=== PATIENT | male | born 1980 | race Two or more races ===

== ENCOUNTER 2020-07-12 10:20 | Outpatient (REF) | payer MEDICAID, SELFPAY ==
--- NOTE | 2020-07-12 | US_ITS ---
EXAMINATION: RIGHT and LEFT LOWER EXTREMITY VENOUS ULTRASOUND (Reflux Exam) CLINICAL INDICATION: leg pain and varicose veins. COMPARISON: None. TECHNIQUE: Color flow triplex imaging and compression Doppler was performed to evaluate both the deep and the superficial systems bilaterally. To evaluate the superficial system, the examination was performed in the upright position. Color-flow Doppler ultrasound and compression ultrasound were utilized. In addition, maneuvers were utilized to demonstrate reflux. FINDINGS: 1. DEEP VENOUS ULTRASOUND OF THE RIGHT LOWER EXTREMITY: Respiratory variation, normal compression and augmented flow are noted in the right common femoral vein as well as the right popliteal vein and there is no evidence of deep venous thrombosis at these locations. There is no evidence of reflux in the deep system in either the common femoral vein or the superficial femoral vein. There is deep venous reflux in the popliteal vein measuring 3.1 seconds. There is no evidence of a Terrazas's cyst. 2. SUPERFICIAL ULTRASOUND WITH DOPPLER OF RIGHT LOWER EXTREMITY: The right great saphenous vein at the saphenofemoral junction measures 11 mm, at the mid thigh 9 mm, [id number]-igd-[id number] 8 mm, heqhu-bod-cczg 7 mm, at mid calf 4 mm and at the ankle measures 4 mm. There is diffuse right greater saphenous vein reflux measuring maximum 1.5 seconds at the saphenofemoral junction and at the knee. The right small saphenous vein measures 3 mm and shows no reflux. There is a digital media producer in the mid calf that measures 4 mm and does not demonstrate reflux. There are varicosities at the knee measuring 7 and 9 mm which demonstrate 1.9 and 1.5 second reflux. There are varicosities in the proximal calf that measures 7 and 5 mm in diameter and demonstrate 1.5 and 1.1 seconds reflux. 3. DEEP VENOUS ULTRASOUND OF THE LEFT LOWER EXTREMITY: Respiratory variation, normal compression and augmented flow are noted in the left common femoral vein as well as the left popliteal vein and there is no evidence of deep venous thrombosis at these locations. There is no evidence of reflux in the deep system in either the common femoral vein or the popliteal vein. There is deep venous reflux in the superficial femoral vein measuring 1.1 seconds. There is a small fluid collection anterior to the left popliteal vein measuring 2.9 x 0.6 x 1.8 cm.. There is no evidence of a Terrazas's cyst. 4. SUPERFICIAL ULTRASOUND WITH DOPPLER OF LEFT LOWER EXTREMITY: Left great saphenous vein at the saphenofemoral junction measures 9 mm, at the mid thigh 8 mm, wkawr-vil-mykw 6 mm, puzza-oeq-ntft 11 mm, at mid calf 3 mm and at the ankle measures 4 mm. There is left greater saphenous vein reflux from the mid thigh to the mid calf, measuring maximum 3 second at the knee. There is an accessory medial left greater saphenous vein that measures 5 mm and does not demonstrate reflux. The left small saphenous vein measures 3-4 mm and shows no reflux. There is a digital media producer in the mid calf that measures 5 mm and does not demonstrate reflux. There are costal disease in the mid thigh that measure 6 and 5 mm and demonstrates 2.2 and 1 seconds reflux. There are varicosities in the proximal and mid calf that measures 6 and 3 mm and demonstrates 2.5 and 1.2 seconds reflux. IMPRESSION: 1. Right: No evidence of DVT. Right popliteal vein deep venous reflux. Right greater saphenous vein reflux. 2. Left: No evidence of DVT. Left superficial femoral vein deep venous reflux. Left greater saphenous vein reflux.
== END 2020-07-12 10:21 | disposition home or self-care (01) ==
LOC: HO.US 10:20
PROVIDERS: PCP Nurse Practitioner Primary Care; Visit Provider Surgery Vascular Surgery
DX: I83.12 Varicose veins of left lower extremity with inflammation (principal)
CPT/HCPCS: 93970

== ENCOUNTER → 2020-07-26 11:11 | Outpatient (BNVA) | payer MEDICARE, MEDICAID, SELFPAY | PROVIDERS: Visit Provider Surgery Vascular Surgery | DX: I83.12 Varicose veins of left lower extremity with inflammation (principal) | CPT/HCPCS: 99213 ==

== ENCOUNTER → 2020-08-24 09:16 | Outpatient (BNVA) | payer MEDICARE, MEDICAID, SELFPAY | PROVIDERS: PCP Nurse Practitioner Primary Care; Referring Provider Nurse Practitioner Primary Care; Visit Provider Surgery Vascular Surgery | DX: I83.12 Varicose veins of left lower extremity with inflammation (principal) | CPT/HCPCS: 36482 ==

== ENCOUNTER 2020-08-27 11:54 | Outpatient (REF) | payer MEDICARE, MEDICAID, SELFPAY ==
--- NOTE | 2020-08-27 | US_ITS ---
EXAMINATION: US VENOUS ULTRASOUND WITH DOPPLER LOWER EXTREMITY, LEFT CLINICAL INFORMATION: Status post VenaSeal left leg. COMPARISON: None TECHNIQUE: Ultrasound of the deep veins is performed from the hip to the calf with compression sonography and color and pulse Doppler assessment. Spectral analysis with color-flow imaging is performed. FINDINGS: There is normal venous compression and respiratory variation and augmented flow. The visualized common femoral vein, superficial femoral vein, profunda femoral vein, popliteal vein, and the trifurcation region shows no evidence of deep venous thrombosis. There is no significant popliteal fossa cyst. There is a VenaSeal seen in the greater saphenous vein approximately 2.2 cm away from the SFJ. If the patient's symptoms persist, followup ultrasound in 5 days - 7 days might be of value to exclude proximal propagation from a non-visualized calf vein. US/US venous duplex LE IMPRESSION: No DVT demonstrated in the left lower extremity. Evidence of VenaSeal in the greater saphenous vein approximately 2.2 cm away from SFJ.
== END 2020-08-27 11:55 | disposition home or self-care (01) ==
LOC: HO.US 11:54
PROVIDERS: PCP Nurse Practitioner Primary Care; Visit Provider Surgery Vascular Surgery
DX: M79.662 Pain in left lower leg (principal)
CPT/HCPCS: 93971

== ENCOUNTER → 2020-09-06 10:28 | Outpatient (BNVA) | payer MEDICARE, MEDICAID, SELFPAY | PROVIDERS: PCP Nurse Practitioner Primary Care; Visit Provider Surgery Vascular Surgery | DX: I83.11 Varicose veins of right lower extremity with inflammation (principal) | CPT/HCPCS: 99212 ==

== ENCOUNTER → 2020-09-21 12:30 | Outpatient (BNVA) | payer MEDICARE, MEDICAID, SELFPAY | PROVIDERS: PCP Nurse Practitioner Primary Care; Referring Provider Nurse Practitioner Primary Care; Visit Provider Surgery Vascular Surgery | DX: I83.11 Varicose veins of right lower extremity with inflammation (principal) | CPT/HCPCS: 36482 ==

== ENCOUNTER 2020-09-24 15:10 | Outpatient (REF) | payer MEDICARE, MEDICAID, SELFPAY ==
--- NOTE | 2020-09-24 | US_ITS ---
EXAMINATION: US VENOUS ULTRASOUND WITH DOPPLER LOWER EXTREMITY, RIGHT CLINICAL INFORMATION: Post veno seal. Evaluate for DVT. COMPARISON: Previous exam most recent August 2020 TECHNIQUE: Ultrasound of the deep veins is performed from the hip to the calf with compression sonography and color and pulse Doppler assessment. Spectral analysis with color-flow imaging is performed. FINDINGS: There is normal venous compression and respiratory variation and augmented flow. The visualized common femoral vein, superficial femoral vein, profunda femoral vein, popliteal vein, and the trifurcation region shows no evidence of deep venous thrombosis. There is echogenic material seen in the right greater saphenous vein post venous seal procedure. This is 4.9 cm from the saphenofemoral junction. There is no significant popliteal fossa cyst. US/US venous duplex LE RT IMPRESSION: No DVT demonstrated in the right lower extremity.
== END 2020-09-24 15:11 | disposition home or self-care (01) ==
LOC: HO.US 15:10
PROVIDERS: Visit Provider Surgery Vascular Surgery
DX: M79.604 Pain in right leg (principal)
CPT/HCPCS: 93971

== ENCOUNTER → 2020-10-02 11:11 | Outpatient (BNVA) | payer MEDICARE, SELFPAY | PROVIDERS: PCP Nurse Practitioner Primary Care; Visit Provider Surgery Vascular Surgery | DX: I87.2 Venous insufficiency (chronic) (peripheral) (principal); Z98.890 Other specified postprocedural states | CPT/HCPCS: Q3014 ==

== ENCOUNTER → 2021-09-11 09:11 | Outpatient (BNVA) | payer OTHER, SELFPAY | PROVIDERS: PCP Nurse Practitioner Primary Care; Referring Provider Nurse Practitioner Primary Care; Visit Provider Surgery | DX: D17.9 Benign lipomatous neoplasm, unspecified (principal) | CPT/HCPCS: 99202 ==

== ENCOUNTER 2021-10-03 13:33 | Outpatient (REF) | payer OTHER, SELFPAY ==
[2021-10-03 13:40] VITALS: BMI 31.1
[2021-10-03 13:41] VITALS: BP 111/69; PULSE 71; RESP 16; TEMP 36.3; O2SAT 100
[2021-10-03 14:00] VITALS: BP 110/72; PULSE 70; RESP 16; O2SAT 100
--- NOTE | 2021-10-03 14:00 | W.PM.OPN ---
Operative Note Operative Note Date of Service: 10/03/21 Narrative: Preop diagnosis: Lipomas x2, right arm Postop diagnosis : Lipomas x2 right arm Procedure: Excision of lipomas x2 right arm under local anesthesia Surgeon: Duarte Whitfield MD The patient is a 40 year old male, with to lipomatous masses on the right arm. He had a 2 cm lipoma on the right forearm and a 3 cm lipoma in the right upper arm. He wanted both of these removed. He understood technique of excision under local anesthesia. He was aware of the risks, benefits, and alternatives. The patient was brought to the minor procedure room and placed supine with right arm on the side. A surgical time-out was done. The areas of the lipomas on the right forearm as well as the right upper arm were prepped and draped in the usual sterile fashion. I infiltrated both areas with lidocaine 1%. I made an incision on the skin overlying the lipoma on the right upper arm using blade 15. And this was carried down through the full-thickness skin and part of subcutaneous layer until was able to visualize a lipoma. I sharply dissected the lipoma off of the rest of the subcutaneous layer Metzenbaum scissors until I was able to deliver this. This was about 3 cm by 2 cm in size. This was sent as a specimen. I closed the incision full-thickness nylon 3-0 interrupted sutures. I then proceeded to excise the lipoma on the forearm. I made an incision using blade 15. I carried this down through the full-thickness of the skin and subcutaneous fat until a lipoma was visualized. I sharply dissected the lipoma off of the rest of the subcutaneous layer using Metzenbaum scissors until was able to deliver this. This was sent as specimen. This lipoma measured about 2 cm x 1 cm in size. I closed the incision full-thickness nylon 3-0 interrupted sutures. Dressings were applied on both incisions . The patient tolerated procedure well. There were no complications noted. Estimated blood loss was about 3 cc Patient was given wound care instructions and will be seen in the office for removal of sutures.
== END 2021-10-03 13:34 | disposition home or self-care (01) ==
LOC: HO.MS 13:33
PROVIDERS: Visit Provider Surgery
PROC: (CPT 24071; principal; 2021-10-03 14:20)
DX: D17.21 Benign lipomatous neoplasm of skin and subcutaneous tissue of right arm (principal)
CPT/HCPCS: 24071; 25075; 88304

== ENCOUNTER → 2021-10-16 10:01 | Outpatient (BNVA) | payer OTHER, SELFPAY | PROVIDERS: PCP Nurse Practitioner Primary Care; Referring Provider Nurse Practitioner Primary Care; Visit Provider Surgery | DX: Z09 Encounter for follow-up examination after completed treatment for conditions other than malignant neoplasm (principal); D17.21 Benign lipomatous neoplasm of skin and subcutaneous tissue of right arm | CPT/HCPCS: 99212 ==

== ENCOUNTER 2025-07-18 11:16 | Outpatient (REF) | payer OTHER, SELFPAY ==
--- OUTSIDE RECORDS SUMMARY | 2025-07-18 10:30 | XMS_ITS | Encounter Summary ---
Author Organization [employer] Address [address] [facility] [address] [place] [address] Care Team Providers Care Hair Mixer Name Role Phone Ludivina Gonzalez Primary Care Provider [phone] Reason for Visit * Reason Comments hospital follow up Encounter Details Date Type Department Care Team (Latest Contact Info) Description 07/18/2025 10:30 AM EDT Office Visit [facility] MEDICINE [address], [place] [phone] Ludivina Gonzalez ANP [address], [place] [phone] Hospital discharge follow-up (Primary Dx); Paranoid schizophrenia (CMS/HCC) (HCC); Psychogenic polydipsia; Chronic hyponatremia Social History Tobacco Use Types Packs/Day Years Used Date Smoking Tobacco: Never Smokeless Tobacco: Never Tobacco Cessation:Counseling Given: Not Answered Alcohol Use Standard Drinks/Week Comments Not Currently 0 (1 standard drink = 0.6 oz pur e alcohol) Depression Answer Date Recorded Patient Health Questionnaire-9 Score 4 07/18/2025 Patient Health Questionnaire-9 Score 4 07/18/2025 Last PHQ-9: Questionnaire Data Not on file 1 Housing Stability Answer Date Recorded What is your housing situation today? I have housing today, but I am worried about losing housing in the future 12/16/[address] you li ve. Do you have problems with any of the following? None of the above 12/16/2024 Food Insecurity Answer Date Recorded Within the past 12 months, y ou worried that your food would run out before you got money to buy more: Never True 2024 Within the past 12 months,th e food you bought just didn't last and you didn't have enough money to get more: Sometimes True 12/16/2024 Transportation Answer Date Recorded In the past 12 months, has l ack of transportation kept you from medical appts, meetings, work or from getting things needed for daily living? No 03/11/2024 Utilities Answer Date Recorded In the past 12 months, has t he electric, gas, oil or water company threatened to shut off services in your home? I am not sure 12/16/2024 Depression Answer Date Recorded Patient Health Questionnaire-2 Score 0 07/18/2025 Internet Access Answer Date Recorded Internet Access Q1 No 12/16/2024 Internet Access Q2 Not on file 12/16/2024 Sex and Gender Information Value Date Recorded Sex Assigned at Male 08/04/2022 10:37 AM EDT Legal Sex Male 10:37 AM EDT Gender Identity Male 08/04/2022 10:37 AM EDT Sexual Orientation Straight 08/04/2022 10 :37 AM EDT documented as of this encounter Last Filed Vital Signs Vital Sign Reading Time Taken Comments Blood Pressure 110/70 07/18/2025 10:17 AM EDT Pulse 92 07/18/2025 10:17 AM EDT Temperature 36.2 C (97.1 F) 07/18/2025 10:17 AM EDT Respiratory Rate 15 07/18/2025 10:17 AM EDT Oxygen Saturation 97% 07/18/2025 10:17 AM EDT Inhaled Oxygen Concentration - - Weight 104 kg (230 lb 2 oz) 07/18/2025 10:17 AM EDT Height 175.3 cm (5' 9 ) 07/18/2025 10:17 AM EDT Body Mass Index 33.98 07/18/2025 10:17 AM EDT documented in this encounter Functional Status * Over the past 2 weeks, how often have you been bothered by any of the following problems? Question Answer Date of Assessment Author Patient Health Questionnaire -2 Score 0 07/18/2025 10:44 AM EDT Kiley Younger MA * Little interest or pleasure in doing things Answer Date of Assessment Author Not at all 07/18/2025 10:44 AM EDT Kiley Younger MA * Feeling down, depressed, or hopeless Answer Date of Assessment Author Not at all 07/18/2025 10:44 AM EDKiley Gonzalez MA * Trouble falling or staying asleep, or sleeping too much Answer Date of Assessment Author Not at all 07/18/2025 10:44 AM Kiley Roman MA * Feeling tired or having little energy Answer Date of Assessment Author Several days 07/18/2025 10:44 AM Kiley Roman MA * Poor appetite or overeating Answer Date of Assessment Author Several days 07/18/2025 10:44 AM EDT Kiley Younger MA * Feeling bad about yourself - or that you are a failure or have let yourself or your family down Answer Date of Assessment Author Several days 07/18/2025 10:44 AM Kiley Roman MA * Trouble concentrating on things, such as reading the newspaper or watching television Answer Date of Assessment Author Not at all 07/18/2025 10:44 AM Kiley Roman MA * Moving or speaking so slowly that other people could have noticed? Or the opposite - being so fidgety or restless that you have been moving around a lot more than usual. Answer Date of Assessment Author Several days 07/18/2025 10:44 AM Kiley Roman MA * Thoughts that you would be better off or hurting yourself in some way Answer Date of Assessment Author Not at all 07/18/2025 10:44 AM Kiley Roman MA * Patient Health Questionnaire-9 Score Answer Date of Assessment Author 4 07/18/2025 10:44 AM Kiley Roman MA * How difficult have these problems made it for you to do your work, take care of things at home, or get along with other people? Answer Date of Assessment Author Not difficult at all 07/18/2025 10:44 AM Kiley Romero MA * Over the last 2 weeks, how often have you been bothered by any of the following problems? Question Answer Date of Assessment Author Feeling nervous, anxious, or on edge 1 07/18/2025 10:44 AM Kiley Roman MA Not being able to stop or co ntrol worrying 1 07/18/2025 10:44 AM EDT Kiley Younger MA Worrying too much about diff erent things 1 07/18/2025 10:44 AM EDT Kiley Younger MA Trouble relaxing 1 07/18/2025 10:44 AM EDT Kiley Younger MA Being so restless that it is hard to sit still 0 07/18/2025 10:44 AM EDT Kiley Younger MA Becoming easily annoyed or irritable 1 07/18/2025 10:44 AM EDT Kiley Younger MA Feeling afraid as if somethi ng awful might happen 2 07/18/2025 10:44 AM EDT Kiley Younger MA CATARINA-7 Total Score 7 07/18/2025 10:44 AM EDT Kiley Younger MA documented as of this encounter Progress Notes * DEISI Montaño - 07/18/2025 10:30 AM EDT Subjective Patient ID: Rocky Cummins is a 44 y.o. male who presents for HDF. HPI Recent hospitalization for schizophrenia, [facility] (03/09/25-06/30/25), now living at [facility] facility per pt (though FD reported [facility] provided transportation). He says he feels well. Taking medications as rx'd and reports last risperdal injection 1 week ago. Reports feelings better, but continue endorsing auditory prosecutorial hallucinations and of jew content. Reports drinking 10 bottles water daily and is taking sodium pills. clinician Rolo to room to meet w pt. Pharmacy Recommendations for provider: Lorazepam may have its side effects increased by valproic acid. Monitor for increased lorazepam effects, particularly SECURITY ORDERLY depression Please ensure patient has follow up with psychiatry Patient was continued on Risperdal Consta, to be injected every 14 days. Please confirm when patient received last dose and whether they have an appointment for administration scheduled Per discharge, Monitor sodium levels to assess need for therapy modification of risperidone Background Pharmacist Charleen Saenz PharmD was unable to contact patient to discuss upcoming hospital dischargevisit for schizophrenia, psychogenic polydipsia : Future Appointments Date Time Provider Department Center 07/18/2025 10:30 AM DEISI Montaño MEDICINE [facility] Hospital Course and Medication Reconciliation [facility] (03/09/25-06/30/25) Patient brought in after community crisis co-response triggered by mother due to patient experiencing worsening depression and hallucinations. Patient reported AH in the form of arguing with God and hearing voices telling them people are trying to kill them. Valproate added early in treatment course. Alternatives to risperidone discussed however patient declined. Overall patient became notably less paranoid and hallucinations resolved. Disposition at [facility] respite secured. Patient noted to have hyponatremia on 04/12. Believed to be due to valproate use however ultimate etiology seem to be psychogenic polydipsia. Patient encouraged to self regulate fluid intake and started on sodium tablets. Patient to have weekly sodium labs and outpatient management with PCP. If hyponatremia worsens, converting from risperidone to clozapine may be warranted. Medication changes that occurred during hospitalization include: Added Benztropine 1 mg twice a day Divalproex [address] tab - 1 tab twice a day and 3 tabs at bedtime Lorazepam 2 mg at bedtime Sodium chloride 1000 mg three times a day Changed: none Discontinued: risperidone tablets Preferred Pharmacy: [facility] - [address] [id number] [facility] [address] [id number] Medbox: No Review of Systems Constitutional: Negative for chills and fever. HENT: Negative for sore throat. Respiratory: Negative for cough and shortness of breath. Cardiovascular: Negative for chest pain. Gastrointestinal: Negative for constipation and diarrhea. Endocrine: Negative for polydipsia, polyphagia and polyuria. Genitourinary: Negative for dysuria. Neurological: Negative for weakness. Psychiatric/Behavioral: Negative for sleep disturbance. Objective BP 110/70 (BP Location: Right arm, Patient Position: Sitting, BP Cuff Size: Large adult) Pulse 92 Temp 97.1 ??F (36.2 ??C) (Oral) Resp 15 Ht 5' 9 (1.753 m) Wt 230 lb 2 oz (104 kg) SpO2 97% BMI 33.98 kg/m?? Physical Exam Vitals reviewed. Constitutional: General: He is not in acute distress. Appearance: Normal appearance. He is not ill-appearing. HENT: Head: Normocephalic and atraumatic. Eyes: General: No scleral icterus. Extraocular Movements: Extraocular movements intact. Pupils: Pupils are equal, round, and reactive to light. Cardiovascular: Rate and Rhythm: Normal rate. Pulmonary: Effort: Pulmonary effort is normal. No accessory muscle usage or respiratory distress. Neurological: Mental Status: He is alert and oriented to person, place, and time. Psychiatric: Mood and Affect: Mood normal. Behavior: Behavior normal. Assessment/Plan Diagnoses and all orders for this visit: Hospital discharge follow-up Paranoid schizophrenia (CMS/HCC) ([facility]) Pt engaged w/ psych and therapy services, living in therapeutic housing via either [facility] or [facility], not entirely clear. Pt reports to clinician he could live there for 1yr, which is great but possibly not a manager long term care solution. Living w/ mom in past and decompensated, prior to that was with sister in [place] I believe, and then halfway in [place]. Cont plan per psych. - Valproic Acid Total; Future Psychogenic polydipsia - Comprehensive Metabolic Panel; Future Chronic hyponatremia - Comprehensive Metabolic Panel; Future documented in this encounter Plan of Treatment Upcoming Encounters Date Type Department Care Team (Late st Contact Info) Description 09/22/2025 11:00 AM EST Office Visit [facility] [address], [place] [phone] Ludivina Gonzalez ANP [address] [place] [address] Scheduled Orders Name Type Priority Associated Diagnoses Orde r Schedule Comprehensive Metabolic Panel Lab Routine Psychogenic polydipsia Chronic hyponatremia Expected: 07/18/2025 (Approximate), Expires: 07/18/2026 Valproic Acid Total Lab Routine Paranoid schizophrenia (CMS/HCC) (HCC) Expected: 07/18/2025 (Approximate), Expires: 07/18/2026 documented as of this encounter Visit Diagnoses Diagnosis Hospital discharge follow-up- Primary Other follow-up examination Paranoid schizophrenia (CMS/HCC) (HCC) Paranoid schizophrenia, unspecified condition Psychogenic polydipsia Psychic factors associated with diseases classified elsewhere Chronic hyponatremia Hyposmolality and/or hyponatremia documented in this encounter Additional Health Concerns Assessment Noted Time PHQ-9 Depression Total Score: 4 07/18/20 10:44 AM EDT documented as of this encounter Care Teams Hair Mixer Relationship Specialty Start Date End Date Ludivina Gonzalez ANP [address] [place] [id number] PCP - General Family Medicine 06/05/20 [facility] 11/17[facility]24 documented as of this encounter
--- OUTSIDE RECORDS SUMMARY | 2025-07-18 13:42 | XMS_ITS | Encounter Summary ---
Author Organization [employer] Address [address] [facility] [address] [place] [address] Care Team Providers Care Receiving Room Clerk Name Role Phone Ludivina Gonzalez Primary Care Provider [phone] Reason for Visit * Reason Onset Date Comments chart prep 07/17/2025 Encounter Details Date Type Department Care Team ([facility] Contact Info) Description 07/17/2025 Telephone [facility] [address] [place], [place] [phone] Ludivina Gonzalez ANP [address] [place], [place] [phone] chart prep Social History Tobacco Use Types Packs/Day Years Used Date Smoking Tobacco: Never Smokeless Tobacco: Never Alcohol Use Standard Drinks/Week Comments Not Currently [...] AM EDT documented as of this encounter Miscellaneous Notes * Telephone Encounter - Kiley Younger MA - 07/17/2025 8:49 AM EDT Chart Prep Labs: done Images: not applicable Referrals: not applicable Vaccines due: PCV20, Hep A, and HPV Screenings: not applicable Overdue care gaps: Oral health screening and Disability screen documented in this encounter Plan of Treatment Upcoming Encounters Date Type Department Care Team (Late st Contact Info) Description 09/22/2025 11:00 AM EST Office Visit [facility] [address] [place] [phone] Ludivina Gonzalez ANP [address] [place] [address] documented as of this encounter Visit Diagnoses Not on filedocumented in this encounter Additional Health Concerns Assessment Noted Time PHQ-9 Depression Total Score: 7 10/20/19 25 2:22 PM EST documented as of this encounter Care Teams Receiving Room Clerk Relationship Specialty Start Date End Date Ludivina Gonzalez ANP [address] [place] [id number] PCP - General Family Medicine 06/05/20 [facility] 11/17/24 documented as of this encounter
--- OUTSIDE RECORDS SUMMARY | 2025-07-18 13:42 | XMS_ITS | Encounter Summary ---
Author Organization [employer] Address [address] [place] [address] Care Team Providers Care Electric Meter Installer Helper Name Role Phone Ludivina Gonzalez Primary Care Provider [phone] Reason for Visit * Reason Onset Date Comments Call Back Request 10/12/2023 Encounter Details Date Type Department Care Team ([facility] Contact Info) Description 10/12/2023 Telephone [facility] [address] [place], [place] [phone] Ludivina Gonzalez ANP [address] [place], [place] [phone] Call Back Request Social History Tobacco Use Types Packs/Day Years Used Date Smoking Tobacco: Never Smokeless Tobacco: Never Alcohol Use Standard Drinks/Week Comments Not Currently 0 (1 standard drink = 0.6 oz pur e alcohol) Housing Stability Answer Date Recorded What is your housing situation today? I have niya moore 08/05/[address] you li ve. Do you have problems with any of the following? None of the above 08/05/2023 Food Insecurity Answer Date Recorded Within the past 12 months, y ou worried that your food would run out before you got money to buy more: Never True 08/05/2023 Within the past 12 months,th e food you bought just didn't last and you didn't have enough money to get more: Never True 10/2022 Transportation Answer Date Recorded In the past 12 months, has l ack of transportation kept you from medical appts, meetings, work or from getting things needed for daily living? No 08/05/2023 Utilities Answer Date Recorded In the past 12 months, has t he electric, gas, oil or water company threatened to shut off services in your home? No 08/05/2023 Depression Answer Date Recorded Patient Health Questionnaire-2 Score 0 09/04/2022 Sex and Gender Information Value Date Recorded Sex Assigned at Male 08/04/2022 10:37 AM EDT Legal Sex Male 10:37 AM EDT Gender Identity Male 08/04/2022 10:37 AM EDT Sexual Orientation Straight 08/04/2022 10 :37 AM EDT documented as of this encounter Miscellaneous Notes * Telephone Encounter - DEISI Montaño - 10/12/2023 5:20 PM EST Responded via note in chart, asked team to call mom, suspect psychiatric origin of symptom * Telephone Encounter - Mari Shi RN - 10/12/2023 4:07 PM EST Telephone call returned to patient in regards to below message. Patient's mother stating patient feel he has a bad odor 27/04, whenever he goes to the bathroom he bathes himself everytime he uses the bathroom. Patient showers multiple times a day and uses new socks and underwear to no avail. Patientthinks he has colorectal cancer causing the smell. Patient washes sheets daily and cleans room daily and states he can still smell the smell. Mother states there is NO bleeding or pain when using bathroom but ppt wants colonoscopy. Advised would send message to PCP. Patient's mother verbalized understanding and denied having any further questions or concerns at this time. * Telephone Encounter - Amparo Heredia - 10/12/2023 3:01 PM EST Tc from pt requesting to get a colonoscopy done. States there is a foul smell every time and is concerned. Please contact pt at [phone] documented in this encounter Plan of Treatment Upcoming Encounters Date Type Department Care Team (Late st Contact Info) Description 09/22/2025 11:00 AM EST Office Visit [facility] [address] [place] [address] Ludivina Gonzalez ANP [address] [place] [address] documented as of this encounter Visit Diagnoses Not on filedocumented in this encounter Care Teams Electric Meter Installer Helper Relationship Specialty Start Date End Date Ludivina Gonzalez ANP [address] [place] [address] PCP - General Family Medicine 06/05/20 [facility] 11/17/24 documented as of this encounter
--- OUTSIDE RECORDS SUMMARY | 2025-07-18 13:42 | XMS_ITS | Encounter Summary ---
Author Organization [employer] Address [address] [facility] 7t [place] [address] Care Team Providers Care Kennel Operator Name Role Phone Ludivina Gonzalez Primary Care Provider [phone] Encounter Details Date Type Department Care Team (Latest Contact Info) Description 07/18/2025 Travel Social History Tobacco Use Types Packs/Day Years [...] AM EDT documented as of this encounter Functional Status * Over the [...] 10:44 AM EDT Kiley Younger [place] * Trouble falling or staying asleep, or sleeping too much Answer Date of Assessment Author Not at all 07/18/2025 10:44 AM EDT Kiley Younger [place] * Feeling tired or having little energy Answer Date of Assessment Author Several days 07/18/2025 10:44 AM EDT Kiley Younger [place] * Poor appetite or overeating Answer Date of Assessment Author Several days 07/18/2025 10:44 AM EDT Kiley Younger [place] * Feeling bad about yourself - or that you are a failure or have let yourself or your family down Answer Date of Assessment Author Several days 07/18/2025 10:44 AM EDT Kiley Younger [place] * Trouble concentrating on things, such as reading the newspaper or watching television Answer Date of Assessment Author Not at all 07/18/2025 10:44 AM HINAT Kiley Younger MA * Moving or speaking so slowly that other people could have noticed? Or the opposite - being so fidgety or restless that you have been moving around a lot more than usual. Answer Date of Assessment Author Several days 07/18/2025 10:44 AM EDT Kiley Younger MA * Thoughts that you would be better off or hurting yourself in some way Answer Date of Assessment Author Not at all 07/18/2025 10:44 AM Kiley Roman MA * Patient Health Questionnaire-9 Score Answer Date of Assessment Author 4 07/18/2025 10:44 AM HINAT Kiley Younger MA * How difficult have these problems made it for you to do your work, take care of things at home, or get along with other people? Answer Date of Assessment Author Not difficult at all 07/18/2025 10:44 AM EDT Kiley Gastelum MA * Over the last 2 weeks, how often have you been bothered by any of the following problems? Question Answer Date of Assessment Author Feeling nervous, anxious, or on edge 1 07/18/2025 10:44 AM EDT Kiley Younger MA Not being able to stop or co ntrol worrying 1 07/18/2025 10:44 AM EDT Kiley Younger MA Worrying too much about diff erent things 1 07/18/2025 10:44 AM EDT Kiley Younger MA Trouble relaxing 1 07/18/2025 10:44 AM HINAT Kiley Younger MA Being so restless that it is hard to sit still 0 07/18/2025 10:44 AM Kiley Roman MA Becoming easily annoyed or irritable 1 07/18/2025 10:44 AM HINAT Kiley Younger MA Feeling afraid as if somethi ng awful might happen 2 07/18/2025 10:44 AM Kiley Roman MA CATARINA-7 Total Score 7 07/18/2025 10:44 AM Kiley Roman MA documented as of this encounter Plan of Treatment Upcoming Encounters Date Type Department Care Team (Late st Contact Info) Description 09/22/2025 11:00 AM EST Office Visit [facility] MEDICINE [address] [place] [address] Ludivina Gonzalez ANP [address] [place] [address] documented as of this encounter Visit Diagnoses Not on filedocumented in this encounter Additional Health Concerns Assessment Noted Time PHQ-9 Depression Total Score: 4 07/18/20 25 10:44 AM EDT documented as of this encounter Care Teams Kennel Operator Relationship Specialty Start Date End Date Ludivina Gonzalez ANP [address] [place] [address] PCP - General Family Medicine 06/05/20 [facility] 11/17/24 documented as of this encounter
--- OUTSIDE RECORDS SUMMARY | 2025-07-18 13:42 | XMS_ITS | Clinical Summary ---
Author Organization [employer] Address [address] [facility] 7t [place] [address] Care Team Providers Care Volcanology Professor Name Role Phone Ludiivna Gonzalez Primary Care Provider [phone] Allergies Active Allergy Reactions Criticality Noted Date Comments Aspirin High 06/05/2020 Other reaction(s): Trouble Breathing Medications * This document contains information received from the source organization and may not represent a complete record from that organization. EPINEPHrine (EpiPen 2-Carlos) 0.3 MG/0.3ML injection syringe Inject 0.3 mL into the shoulder, thigh, or buttocks. 06/05/20 Active risperiDONE microspheres (RisperDAL Consta) 50 MG injection Inject 50 mg into the muscle every 14 (fourteen) days. 11/10/19 25 Active benztropine (Cogentin) 1 MG tablet Take 1 tablet by mouth 2 times daily. 06/29/20 Active divalproex (Depakote) 250 MG EC tablet Take 1 tablet (250 mg total) by mouth 2 (two) times a day AND 3 tablets (750 mg total) nightly at bedtime 06/29/20 025 Active LORazepam (Ativan) 2 MG tablet Take 1 tablet by mouth at bedtime. 06/29/20 Active sodium chloride 1 g tablet Take 1 tablet by mouth 3 times daily. 06/29/20 Active risperiDONE (RisperDAL M-TAB) 4 MG disintegrating tablet Take 1 tablet by mouth Once per day. 11/11/19 25 025 Discontinued(Me d list cleanup (will not trigger notification to Pharmacy)) risperiDONE (RisperDAL M-TAB) 2 MG disintegrating tablet Take 1 tablet by mouth at bedtime. 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 Chronic hyponatremia 06/29/2025 Schizophrenia, paranoid, chr onic with acute exacerbation ([facility]) 03/09/2025 Class 1 obesity 09/04/2022 Vitamin D deficiency 09/04/2022 Varicose veins of both lower extremities 022 Mild intermittent asthma without complication Schizophrenia 06/05/2020 Assessment & Plan (03/28/2024 9:55 AM EDT): During IBH Consult Rocky presenting with delusions/odd beliefs, hallucinations visual and tactile per pt's report, frequent derailment, difficulty organizing thoughts while speaking and reduction of ability to express emotions ; for a period of 18+ mo, for all symptoms in the context of chronic mental health condition. Severity of symptoms have an impact on Orlando's interpersonal and occupational functioning. During today's session, Orlando reports history of schizophrenia. He is currently on medication to treat symptoms and has been for the last 20 years. Sees a psychiatrist, Dr. Green and recently lost OP care with his therapist Renetta Lane, whom has been working with pt for the last five years. Pt prefers to be seeing by same therapist and will call her and make new appointment. Rocky lives with his mom and grandma and has strong family support. Pt was engaged with supportive therapy through active listening, validation of emotions and open-ended questions. Rocky is open to follow-up with clinician regarding OP services and if he will continue working with therapist or needs assistance for external referrals. PLAN: (check all that apply) Behavioral Health Integration Plan Patient Self Plan Patient to utilize skills provided in intervention , Patient to reach out to [facility] team as needed, Comply with medication , Patient to engage in OP therapy , and Patient to reach out to [facility] as needed Pt will reconnect with same therapist and will follow-up with clinician as needed. Encounters * This document contains information received from the source organization and may not represent a complete record from that organization. Date Type Department Care Team Description 07/18/2025 10:30 AM EDT Office Visit [facility] [address] [place] [address] Ludivina Gonzalez ANP Hospital discharge follow-up (Primary Dx); Paranoid schizophrenia (CMS/HCC) (HCC); Psychogenic polydipsia; Chronic hyponatremia 07/18/2025 Travel 07/17/2025 Telephone [facility] [address] [place] [address] Ludivina Gonzalez ANP chart prep 06/30/2025 Patient Outreach [facility] [address] [place] [address] Ludivina Gonzalez ANP Transition Of Care (Tcm) (HDF scheduled) from Last 3 Months Immunizations Immunization Administration Dates Next Due Influenza injectable quadriv alent preservative free 08/31/2023,07/29/2022,06/25/2021,2019 Influenza, seasonal, injecta ble, preservative free 06/30/2025,08/12/2024 Moderna Covid-19 Vaccine 12+ 09/23/2021 Pfizer Covid-19 Vaccine 12+ 08/12/2024, 3,01/30/2021 Pfizer Covid-19 Vaccine 12+ Bivalent 07/29/2022 Tdap 06/22/2020 Family History Medical History Relation Name Comments Cancer Maternal Grandfather melanom a Diabetes Other Heart disease Other Hypertension Other Kidney disease Other Cancer Paternal Grandmother breast ca Relation Name Status Comments Maternal Grandfather Other Paternal Grandmother Social History Tobacco Use Types Packs/Day Years [...] Orientation Straight 08/04/2022 10 :37 AM EDT Last Filed Vital Signs Vital Sign Reading [...] Mass Index 33.98 07/18/2025 10:17 AM EDT Plan of Treatment Upcoming Encounters Date Type Department Care Team (Late st Contact Info) Description 09/22/2025 11:00 AM EST Office Visit [facility] [address] [place] [address] Ludivina Gonzalez ANP [address] [place] [address] Health Maintenance Due Date Last Done Comments Family Planning (PISQ) 1996 HPV Vaccines (1 - Male 3-dose series) 1996 Hepatitis B Vaccines (1 of 3 - 19+ 3-dose series) 2000 Pneumococcal Vaccine: Pediatrics (0 to 5 Years) and At-Risk Patients (6 to 49) Years (1 of 2 - PCV) 2000 Alcohol/Substance Use Screening 10/20/2025 10/20/2024 SDOH Screening 12/16/2025 12/16/2024 Depression Screening 07/18/2026 07/18/2025, 07/18/20 Disability Screening 07/18/2026 07/18/2025 Tobacco Screening 07/18/2026 07/18/2025 Lipid Panel 02/18/2028 02/17/2023, 06/22/2020 DTaP/Tdap/Td Vaccines (2 - Td or Tdap) 06/22/2030 06/22/2020 Zoster Vaccines (1 of 2) 12/10/2031 RSV Patients and Patients Aged 60 years or older (1 - 1-dose 75+ series) 2056 HIV Screening Completed 06/22/2020 Hepatitis C Screening Completed 06/22/2020 COVID-19 Vaccine Completed 08/12/2024, , 07/29/2022, Additional history exists Influenza Vaccine Completed 06/30/2025, , 08/31/2023, Additional history exists HIB Vaccines Aged Out No longer eligi ble based on patient's age to complete this topic Hepatitis A Vaccines Aged Out No long er eligible based on patient's age to complete this topic IPV Vaccines Aged Out No longer eligi ble based on patient's age to complete this topic Meningococcal B Vaccine Aged Out No l onger eligible based on patient's age to complete this topic Meningococcal Vaccine Aged Out No philip karla eligible based on patient's age to complete this topic RSV under 20 months Aged Out No longe r eligible based on patient's age to complete this topic Rotavirus Vaccines Aged Out No longer eligible based on patient's age to complete this topic Procedures Procedure Name Priority Date/Time Associated Diagnosis Comments LIPID PANEL, STANDARD Routine 02/17/2023 1:01 PM EDT Undifferentiated schizophrenia (CMS/HCC) Healthcare maintenance Lipid screening [facility]ZZ HISTORICAL HEPATITIS C AB W/REFL TO HCV RNA, QN, PCR Routine 06/22/2020 2:28 PM EDT HIV 1/2 ANTIGEN/ANTIBODY, FOURTH GENERATION W/RFL Routine 06/22/2020 2:28 PM EDT from Last 3 Months or Most Recently Relevant to Health Maintenance Results * Lipid Panel, Standard (02/17/2023 1:01 PM EDT) Cholesterol, Total 150 <200 mg/dL [facility] [place] [facility] HDL Cholesterol 61 > OR = 40 mg/dL [facility] [place] [facility] Triglycerides 67 <150 mg/dL [facility] [place] [facility] LDL Cholesterol 75 mg/dL (calc) [facility] [place] [facility] Comment: Reference range: <100 Desirable range <100 mg/dL for primary prevention; <70 mg/dL for patients with CHD or diabetic patients with > or = 2 CHD risk factors. LDL-C is now calculated using the Edwardo-Jose calculation, which is a validated novel method providing better accuracy than the Friedewald equation in the estimation of LDL-C. Edwardo SS et al. RENE. 2013;310(19): 6738-0235 (http://education.[employer]ERA Networks/faq/CJE721) Chol/HDLC Ratio 2.5 <5.0 (calc) [facility] [place] [facility] Non-HDL Cholesterol 89 <130 mg/dL (calc) [facility] [place] [facility] Comment: For patients with diabetes plus 1 major ASCVD risk factor, treating to a non-HDL-C goal of <100 mg/dL (LDL-C of <70 mg/dL) is considered a therapeutic option. Blood Venous blood specimen / Unknown 02/17/2023 1:01 PM EDT 02/17/2023 1:01 PM EDT us Ludivina [facility] LAB BLOOD ORDERABLES Final Resul t [facility] [address], [place] [address] [facility] [place] [facility] [address] [place] [phone] * HEPATITIS C AB W/REFL TO HCV RNA, QN, PCR (06/22/2020 2:28 PM EDT) HEPATITIS C ANTIBODY NON-REACT WAYNE NON-REACT WAYNE [facility] INDEX 0.04 <1.00 [facility] Comment: HCV antibody was non-reactive. There is no laboratory evidence of HCV infection. In most cases, no further action is required. However, if recent HCV exposure is suspected, a test for HCV RNA (test code 29205) is suggested. For additional information please refer to http://[employer].Spectrum5/faq/LRV53w6 (This link is being provided for informational/ educational purposes only.) HEPATITIS C ANTIBODY NON-REACT WAYNE NON-REACT WAYNE [facility] INDEX 0.04 <1.00 [facility] Comment: HCV antibody was non-reactive. There is no laboratory evidence of HCV infection. In most cases, no further action is required. However, if recent HCV exposure is suspected, a test for HCV RNA (test code 57104) is suggested. For additional information please refer to http://U[employer].Spectrum5/faq/RAB21x5 (This link is being provided for informational/ educational purposes only.) 06/22/2020 2:28 PM EDT us Ludivina Gonzalez ANP HISTORICAL/NON ORDERABLE LABS Fi nal Result [facility] [address] * HIV 1/2 ANTIGEN/ANTIBODY,FOURTH GENERATION W/RFL (06/22/2020 2:28 PM EDT) HIV-1/2 ANTIGEN AND ANTIBODIES, 4TH GENERATION W/ REFLEX NON-REACT WAYNE NON-REACT WAYNE [facility] Comment: HIV-1 antigen and HIV-1/HIV-2 antibodies were not detected. There is no laboratory evidence of HIV infection. PLEASE NOTE: This information has been disclosed to you from records whose confidentiality may be protected by state law. If your state requires such protection, then the state law prohibits you from making any further disclosure of the information without the specific written consent of the person to whom it pertains, or as otherwise permitted by law. A general authorization for the release of medical or other information is NOT sufficient for this purpose. For additional information please refer to http://U[employer] Mobile.Spectrum5/faq/ZOA118 (This link is being provided for informational/ educational purposes only.) The performance of this assay has not been clinically validated in patients less than 2 years old. HIV-1/2 ANTIGEN AND ANTIBODIES, 4TH GENERATION W/ REFLEX NON-REACT WAYNE NON-REACT WAYNE [facility] Comment: HIV-1 antigen and HIV-1/HIV-2 antibodies were not detected. There is no laboratory evidence of HIV infection. PLEASE NOTE: This information has been disclosed to you from records whose confidentiality may be protected by state law. If your state requires such protection, then the state law prohibits you from making any further disclosure of the information without the specific written consent of the person to whom it pertains, or as otherwise permitted by law. A general authorization for the release of medical or other information is NOT sufficient for this purpose. For additional information please refer to http://NanoICE/faq/PLN697 (This link is being provided for informational/ educational purposes only.) The performance of this assay has not been clinically validated in patients less than 2 years old. HIV-1/2 ANTIGEN AND ANTIBODIES, 4TH GENERATION W/ REFLEX NON-REACT WAYNE NON-REACT WAYNE [facility] Comment: HIV-1 antigen and HIV-1/HIV-2 antibodies were not detected. There is no laboratory evidence of HIV infection. PLEASE NOTE: This information has been disclosed to you from records whose confidentiality may be protected by state law. If your state requires such protection, then the state law prohibits you from making any further disclosure of the information without the specific written consent of the person to whom it pertains, or as otherwise permitted by law. A general authorization for the release of medical or other information is NOT sufficient for this purpose. For additional information please refer to http://NanoICE/faq/NBT200 (This link is being provided for informational/ educational purposes only.) The performance of this assay has not been clinically validated in patients less than 2 years old. HIV-1/2 ANTIGEN AND ANTIBODIES, 4TH GENERATION W/ REFLEX NON-REACT WAYNE NON-REACT WAYNE [facility] Comment: HIV-1 antigen and HIV-1/HIV-2 antibodies were not detected. There is no laboratory evidence of HIV infection. PLEASE NOTE: This information has been disclosed to you from records whose confidentiality may be protected by state law. If your state requires such protection, then the state law prohibits you from making any further disclosure of the information without the specific written consent of the person to whom it pertains, or as otherwise permitted by law. A general authorization for the release of medical or other information is NOT sufficient for this purpose. For additional information please refer to http://education.Spectrum5/faq/ZLE563 (This link is being provided for informational/ educational purposes only.) The performance of this assay has not been clinically validated in patients less than 2 years old. 06/22/2020 2:28 PM EDT [facility] LAB BLOOD ORDERABLES Final Resul t [facility] [address] from Last 3 Months or Most Recently Relevant to Health Maintenance Insurance [facility]ARE < 65 JONE HERNANDEZ [id number] Care Teams Volcanology Professor Relationship Specialty Start Date End Date Ludivina Gonzalez ANP [address] [place] [phone] PCP - General Family Medicine 06/05/20 [facility] 11/17/24
--- OUTSIDE RECORDS SUMMARY | 2025-07-18 13:42 | XMS_ITS | Encounter Summary ---
Author Organization [employer] [facility] Address [address] [place] [address] 7 [place] [address] Care Team Providers Care Deflector Operator Name Role Phone Ludivina Gonzalez Primary Care Provider Reason for Visit * Reason Comments Med Refill Encounter Details Date Type Department Care Team ([facility] Contact Info) Description 12/19/2022 Refill [facility] [address] [place] [phone] Ludivina Gonzalez ANP [address] [place] [phone] Vitamin D deficiency Social History Tobacco Use Types Packs/Day Years Used Date Smoking Tobacco: Never Smokeless Tobacco: Never Alcohol Use Standard Drinks/Week Comments Not Currently 0 (1 standard drink = 0.6 oz pur e alcohol) Depression Answer Date Recorded Patient Health Questionnaire-2 Score 0 09/04/2022 Sex and Gender Information Value Date Recorded Sex Assigned at Male 08/04/2022 10:37 AM EDT Legal Sex Male 10:37 AM EDT Gender Identity Male 08/04/2022 10:37 AM EDT Sexual Orientation Straight 08/04/2022 10 :37 AM EDT documented as of this encounter Plan of Treatment Upcoming Encounters Date Type Department Care Team ([facility] Contact Info) Description 09/22/2025 11:00 AM EST Office Visit [facility] [address] [place] [phone] Ludivina Gonzalez ANP [address] [place] [phone] documented as of this encounter Visit Diagnoses Diagnosis Vitamin D deficiency documented in this encounter Care Teams Deflector Operator Relationship Specialty Start Date End Date Ludivina Gonzalez ANP [address] [place] [address] PCP - General Family Medicine 06/05/20 [facility] 11/17/24 documented as of this encounter
--- OUTSIDE RECORDS SUMMARY | 2025-07-18 13:43 | XMS_ITS | Encounter Summary ---
Author Organization [employer] Address [address] [facility] 7[address] [place] [address] Care Team Providers Care Instrumentation Manager Name Role Phone Ludivina Gonzalez Primary Care Provider [phone] Reason for Visit * Reason Onset Date Comments FYI 02/24/2025 Encounter Details Date Type Department Care Team ([facility] Contact Info) Description 02/24/2025 Telephone [facility] [address] [place], [place] [phone] Ludivina Gonzalez ANP [address] [place], [place] [phone] FYI Social History Tobacco Use Types Packs/Day Years Used Date Smoking Tobacco: Never Smokeless Tobacco: Never Alcohol Use Standard Drinks/Week Comments Not Currently 0 (1 standard drink = 0.6 oz pur e alcohol) Depression Answer Date Recorded Patient Health Questionnaire-9 Score 7 10/20/2024 Patient Health Questionnaire-9 Score 7 10/20/2024 Last PHQ-9: Questionnaire Data Not on file 0 10/20/2024 Housing Stability Answer Date Recorded What is [...] Answer Date Recorded Patient Health Questionnaire-2 Score 2 10/20/2024 Internet Access Answer Date Recorded Internet Access [...] encounter Miscellaneous Notes * Telephone Encounter - Allegra Pyle - 02/24/2025 12:19 PM EDT Tc from [facility] with [facility] calling to inform provider pt was transferred to Emergency. Name of hospital and reason not provided. Nursing services will be paused until further notice. If any questions contact Hiral at [phone] documented in this encounter Plan of Treatment Upcoming Encounters Date Type Department Care Team (Late st Contact Info) Description 09/22/2025 11:00 AM EST Office Visit [facility] [address] [place] [address] Ludivina Gonzalez ANP [address] [place] [address] documented as of this encounter Visit Diagnoses Not on filedocumented in this encounter Additional Health Concerns Assessment Noted Time PHQ-9 Depression Total Score: 7 10/20/19 25 2:22 PM EST documented as of this encounter Care Teams Instrumentation Manager Relationship Specialty Start Date End Date Ludivina Gonzalez ANP [address] [place] [address] PCP - General Family Medicine 06/05/20 [facility] 11/17/24 documented as of this encounter
--- OUTSIDE RECORDS SUMMARY | 2025-07-18 13:43 | XMS_ITS | Clinical Summary ---
Author Organization [facility] Address [address] [facility] [address] [place] [phone] Phone Care Team Providers Care Hydroelectric Powerplant Supervisor Name Role Phone Pcp, Unknown Primary Care Provider Unavailabl e Allergies No known active allergies Medications * This document contains information received from the source organization and may not represent a complete record from that organization. risperiDONE microspheres (RISPERDAL CONSTA) 50 mg/2 mL IM injection syringe Inject 2 mL (50 mg total) into the muscle every 14 (fourteen) days. 2 mL 5 Active divalproex (DEPAKOTE) [address] tablet Take 1 tablet (250 mg total) by mouth 2 (two) times a day AND 3 tablets (750 mg total) nightly at bedtime. 150 tablet 5 07/29/20 25 Active benztropine (COGENTIN) 1 MG tablet Take 1 tablet (1 mg total) by mouth 2 (two) times a day. 60 tablet 5 Active LORazepam (ATIVAN) 2 MG tablet Take 1 tablet (2 mg total) by mouth nightly at bedtime. 30 tablet 5 Active sodium chloride 1,000 mg tablet Take 1 tablet (1,000 mg total) by mouth 3 (three) times a day. 90 tablet 5 Active risperiDONE (RISPERDAL M-TABS) 2 MG disintegrating tablet Take 1 tablet (2 mg total) by mouth nightly at bedtime for 7 days. Last dose to be given on 11/17/24 7 tablet 5 06/30/20 25 Discontin ued(Stop Taking at Discharge ) risperiDONE (RISPERDAL-M) 4 MG disintegrating tablet Take 1 tablet (4 mg total) by mouth daily for 6 days. Last dose to be given on 11/17/24 6 tablet 5 06/30/20 25 Discontin ued(Stop Taking at Discharge ) risperiDONE microspheres (RISPERDAL CONSTA) 50 mg/2 mL IM injection syringe Inject 2 mL (50 mg total) into the muscle every 14 (fourteen) days. 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 Chronic hyponatremia 06/29/2025 Schizophrenia, paranoid, chronic with acute exac erbation 03/09/2025 Resolved Problems Problem Noted Date Diagnosed Date Resolved Date Anxiety 03/08/2025 03/09/2025 Psychosis 02/22/2025 03/09/2025 Auditory hallucinations 10/22/2024 06/0 02/2025 Immunizations Immunization Administration Dates Next Due INFLUENZA, SPLIT VIRUS, TRIVALENT PF ,11/11/2024(Deferred: Patient Refused) Social History Tobacco Use Types Packs/Day Years Used Date Smoking Tobacco: Former Cigarettes Q uit: 2023 Passive Smoke Exposure: Never Smokeless Tobacco: Never Tobacco Cessation:Counseling Given: No Alcohol Use Standard Drinks/Week Comments Never 0 (1 standard drink = 0.6 oz pur e alcohol) Education Answer Date Recorded Are you interested in more education? Not on kourtney e 01/30/2023 Are you concerned about learning? Not on file 01/30/2023 No 01/30/2023 No 01/30/2023 Food Answer Date Recorded Within the past 6 months we worried whether our food would run out before we got money to buy more. Never True 03/09/2025 Within the past 6 months the food we bought just didn't last and we didn't have enough money to get more. Never True Residential Stability Answer Date Recor ded What is your housing situation today? I have niya sing 03/09/2025 How many times have you move d in the past 12 months? Zero (I did not move) 03/09/2025 Paying for Meds Answer Date Recorded Do you have trouble paying for medicines? No 03/09/2025 Paying Utility Bills Answer Date Record ed Do you have trouble paying your heating or elect ricity bill? No 03/09/2025 Transportation Answer Date Recorded Has the lack of transportati on kept you from medical appointments or from getting medications? No 03/09/2025 Digital Access Answer Date Recorded Yes 03/09/2025 No 03/09/2025 Do you have reliable internet access at home? No 03/09/2025 Do you have a device (e.g., phone, tablet, computer) with a working camera? No 03/09/2025 Intimate Partner Violence Answer Date R ecorded Are you denied basic needs s uch as food, clothing, or medical care? No 03/09/2025 In the past 12 months have y ou been in a relationship with a person who hurts, threatens, or tries to control you? No 03/09/2025 Are you denied basic needs s uch as food, clothing, or medical care? No 03/09/2025 In the past 12 months have y ou been in a relationship with a person who hurts, threatens, or tries to control you? No 03/09/2025 Sex and Gender Information Value Date Recorded Sex Assigned at Male 05/20/2024 11:18 AM EDT Legal Sex Male 4:04 PM EDT Gender Identity Male 05/20/2024 11:18 AM EDT Sexual Orientation Don't know 05/20/2024 11 :52 AM EDT Last Filed Vital Signs Vital Sign Reading Time Taken Comments Blood Pressure 123/71 06/30/2025 9:00 AM EDT Pulse 83 06/30/2025 9:00 AM EDT Temperature 35.8 C (96.4 F) 06/30/2025 9:00 AM EDT Respiratory Rate 16 06/30/2025 9:00 AM EDT Oxygen Saturation 98% 06/30/2025 9:00 AM EDT Inhaled Oxygen Concentration - - Weight 113.2 kg (249 lb 8 oz) 06/19/2025 8:00 AM EDT Height 175.3 cm (5' 9.02 ) 03/09/2025 12:47 PM E DT Body Mass Index 36.83 03/09/2025 12:47 PM EDT Plan of Treatment Health Maintenance Due Date Last Done Comments DEPRESSION SCREENING 1993 SMOKING Hx and SMOKELESS TOBACCO SCREENING 1994 HEPATITIS C SCREENING 12/10/1999 HIV ONE-TIME SCREENING (18-6 5 YEARS) 12/10/1999 COVID-19 VACCINE (2024-2 6 season) 2025 01/30/2021 VALPROIC ACID (DEPAKENE) LEVEL 06/30/2026 0 06/30/2025, 06/29/2025, 04/12/2025 SCREENING FOR DIABETES 06/30/2028 , 04/12/2025 LIPID PANEL 04/12/2030 04/12/2025, 10/26/2024, 02/17/2023 Adult Td,Tdap Booster 06/22/2030 06/22/2020 INFLUENZA VACCINE Completed 06/30/2025, 06/22/2020 HEPATITIS A VACCINES Aged Out No long er eligible based on patient's age to complete this topic HIB VACCINES Aged Out No longer eligi ble based on patient's age to complete this topic MENINGOCOCCAL VACCINES (ACWY) Aged Out No longer eligible based on patient's age to complete this topic MENINGOCOCCAL VACCINES (B) Aged Out N o longer eligible based on patient's age to complete this topic PNEUMOCOCCAL VACCINES (0-49 years) Aged Out No longer eligible b ased on patient's age to complete this topic Medical Devices Not on file Procedures Procedure Name Priority Date/Time Associated Diagnosis Comments CBC AND DIFFERENTIAL Routine 06/30/2025 7:00 AM EDT VALPROIC ACID Timed 06/30/2025 7:00 AM EDT BASIC METABOLIC PANEL Routine 06/30/2025 7:00 AM EDT COVID PANDEMIC RESPIRATORY VIRAL ORDER (PRO) Routine 06/29/2025 3:05 PM EDT VALPROIC ACID Timed 06/29/2025 9:01 AM EDT BASIC METABOLIC PANEL Routine 06/28/2025 8:41 AM EDT BASIC METABOLIC PANEL Routine 06/26/2025 7:28 AM EDT BASIC METABOLIC PANEL Routine 06/23/2025 7:15 AM EDT BASIC METABOLIC PANEL Routine 06/21/2025 7:53 AM EDT BASIC METABOLIC PANEL Routine 06/19/2025 7:21 AM EDT BASIC METABOLIC PANEL Routine 06/16/2025 6:00 AM EDT BASIC METABOLIC PANEL Routine 06/14/2025 7:40 AM EDT BASIC METABOLIC PANEL Routine 06/12/2025 7:00 AM EDT POCT GLUCOSE Routine 06/11/2025 2:22 PM EDT BASIC METABOLIC PANEL Routine 06/11/2025 7:57 AM EDT BASIC METABOLIC PANEL Routine 06/09/2025 9:32 AM EDT BASIC METABOLIC PANEL Routine 06/07/2025 7:12 AM EDT BASIC METABOLIC PANEL Routine 06/05/2025 8:28 AM EDT BASIC METABOLIC PANEL Routine 06/03/2025 6:00 AM EDT BASIC METABOLIC PANEL Routine 06/01/2025 11:10 AM EDT BASIC METABOLIC PANEL Routine 05/29/2025 6:51 AM EDT BASIC METABOLIC PANEL Routine 05/25/2025 7:06 AM EDT BASIC METABOLIC PANEL Routine 05/21/2025 9:28 AM EDT BASIC METABOLIC PANEL Routine 05/19/2025 7:20 AM EDT BASIC METABOLIC PANEL Routine 05/17/2025 7:31 AM EDT BASIC METABOLIC PANEL Routine 05/15/2025 7:10 AM EDT BASIC METABOLIC PANEL Routine 05/14/2025 8:24 AM EDT BASIC METABOLIC PANEL Routine 05/13/2025 7:41 AM EDT BASIC METABOLIC PANEL Routine 05/12/2025 8:33 AM EDT CBC AND DIFFERENTIAL Routine 05/11/2025 7:31 AM EDT BASIC METABOLIC PANEL Routine 05/11/2025 7:31 AM EDT LAB ADD ON Routine 05/10/2025 10:17 AM EDT BASIC METABOLIC PANEL Routine 05/10/2025 8:45 AM EDT BASIC METABOLIC PANEL Routine 05/09/2025 1:50 PM EDT BASIC METABOLIC PANEL Routine 05/08/2025 8:48 AM EDT BASIC METABOLIC PANEL Routine 05/06/2025 9:18 AM EDT BASIC METABOLIC PANEL Routine 05/04/2025 9:26 AM EDT BASIC METABOLIC PANEL Routine 05/01/2025 12:42 PM EDT BASIC METABOLIC PANEL Routine 04/27/2025 9:54 AM EDT BASIC METABOLIC PANEL Routine 04/24/2025 12:39 PM EDT OSMOLALITY, SERUM Routine 04/22/2025 7:5 5 AM EDT BASIC METABOLIC PANEL Routine 04/22/2025 7:55 AM EDT SODIUM, RANDOM URINE Routine 04/21/2025 12:43 PM EDT OSMOLALITY (URINE, RANDOM) Routine 04/21/2025 12:43 PM EDT BASIC METABOLIC PANEL Routine 04/21/2025 7:44 AM EDT BASIC METABOLIC PANEL Routine 04/20/2025 10:14 PM EDT BASIC METABOLIC PANEL Routine 04/20/2025 8:17 AM EDT BASIC METABOLIC PANEL Routine 04/19/2025 8:18 PM EDT BASIC METABOLIC PANEL Routine 04/18/2025 9:35 PM EDT SODIUM, RANDOM URINE Routine 04/18/2025 1:54 PM EDT BASIC METABOLIC PANEL Routine 04/18/2025 10:28 AM EDT BASIC METABOLIC PANEL Routine 04/17/2025 9:26 AM EDT LIPID PANEL Routine 04/12/2025 6:55 AM EDT from Last 3 Months or Most Recently Relevant to Health Maintenance Results * CBC and differential (06/30/2025 7:00 AM EDT) Only the most recent of2 resultswithin the time period is included. WBC 6.31 4.00 - 11.00 K/uL [facility] RBC 5.48 4.50 - 5.90 M/uL [facility] HGB 16.0 13.5 - 17.5 g/dL [facility] HCT 47.8 41.0 - 53.0 % [facility] PLT 289 150 - 450 K/uL [facility] MCV 87.2 80.0 - 100.0 fL [facility] MCH 29.2 27.0 - 31.0 pg [facility] MCHC 33.5 32.0 - 36.0 g/dL [facility] RDW 12.9 11.5 - 14.5 % [facility] MPV 10.2 8.4 - 12.0 fL [facility] NRBC 0.00 0.00 /100 WBCs [facility] ABSOLUTE NRBC 0.00 0.00 K/uL [facility] DIFF METHOD Auto [facility] NEUTS 62.4 48.0 - 76.0 % [facility] LYMPHS 25.5 18.0 - 41.0 % [facility] MONOS 9.7 4.0 - 11.0 % [facility] EOS 1.1 0.0 - 5.0 % [facility] BASOS 1.0 0.0 - 1.5 % [facility] Granulocytes, immature (%) 0.3 0.0 - 0.9 % [facility] ABSOLUTE NEUTS 3.94 1.92 - 7.60 K/uL [facility] ABSOLUTE LYMPHS 1.61 0.72 - 4.10 K/uL [facility] ABSOLUTE MONOS 0.61 0.16 - 1.10 K/uL [facility] ABSOLUTE EOS 0.07 0.00 - 0.50 K/uL [facility] ABSOLUTE BASOS 0.06 0.00 - 0.15 K/uL [facility] Granulocytes, immature 0.02 0.00 - 0.09 K/uL [facility] Blood 06/30/2025 7:00 AM EDT 06/30/2025 7:14 AM EDT us Nathaniel Leigh MD LAB BLOOD ORDERABLES Final Result Performing Organization Address City/State/[facility] Co de Phone Number [address] [address] * Valproic acid (06/30/2025 7:00 AM EDT) Only the most recent of2 resultswithin the time period is included. VALPROIC ACID 85.5 50.0 - 100.0 ug/mL [facility] Blood 06/30/2025 7:00 AM EDT 06/30/2025 7:14 AM EDT us Nathaniel Leigh MD LAB BLOOD ORDERABLES Final Result [address] [address] * (ABNORMAL) Basic metabolic panel (06/30/2025 7:00 AM EDT) Only the most recent of41 resultswithin the time period is included. SODIUM 136 133 - 146 mmol/L [facility] CHLORIDE 98 96 - 108 mmol/L [facility] POTASSIUM 4.9 3.3 - 5.1 mmol/L [facility] CO2 28 21 - 35 mmol/L [facility] BUN 10 6 - 19 mg/dL [facility] CREATININE 0.80 0.5 - 1.5 mg/dL [facility] GLUCOSE 101(H) 70 - 99 mg/dL [facility] CALCIUM 10.1 8.4 - 10.3 mg/dL [facility] EGFR 113 >59 mL/min/1.7 3m2 [facility] Comment:Estimated glomerular filtration rate calculated using the CKD-EPI refit equation. ANION GAP 15 10 - 20 mmol/L [facility] Blood 06/30/2025 7:00 AM EDT 06/30/2025 7:14 AM EDT Nathaniel Leigh MD LAB BLOOD ORDERABLES Final Result [address] [address] * COVID Pandemic Respiratory Viral Order (PRO) (06/29/2025 3:05 PM EDT) Test Ordered COVID has been ordered [facility] SPECIMEN SOURCE/DESCRIPTION NASAL [facility] SARS-CoV 2 (COVID-19) PCR Negative Negative [facility] Comment: SARS-CoV-2 not detected Negative results do not preclude SARS-CoV-2 infection and should not be used as the sole basis for patient management decisions. Negative results must be combined with clinical observations, patient history, and epidemiological information. This test has been authorized by the FDA under an Emergency Use Authorization (EUA) for use by authorized laboratories. Other (Nasal swab) 06/29/2025 3:05 PM EDT 06/29/2025 3:38 PM EDT us Nathaniel Leigh MD BODY FLUIDS AND STOOLS ORD ERABLES Final Result Performing Organization Address [facility]/ZIP Co de Phone Number [address] [address] * (ABNORMAL) POCT Glucose (06/11/2025 2:22 PM EDT) Glucose, POCT 102(H) 70 - 100 mg/dL [facility] 06/11/2025 2:22 PM EDT 06/11/2025 2:24 PM EDT us Nathaniel Leigh MD POINT OF CARE TEST ORDERAB LES Final Result Performing Organization Address [facility] Co de Phone Number [address] [address] * Lab Add On: CBC with diff (05/10/2025 10:17 AM EDT) TEST REQUESTED CBC WITH DIFF [facility] Comments (Chemistry) Add on order being processed. Floor or provider will be notified if testing cannot be performed [facility] 05/10/2025 10:1 7 AM EDT 05/10/2025 10:37 AM EDT us Nathaniel Leigh MD LAB BLOOD ORDERABLES Final Result Performing Organization Address [facility] Co de Phone Number [address] [address] * (ABNORMAL) Osmolality, serum (04/22/2025 7:55 AM EDT) OSMOLALITY 274(L) 289 - 308 mOsm/kg water [facility] Blood 04/22/2025 7:55 AM EDT 04/22/2025 8:29 AM EDT us Guevraa Barreto MD LAB BLOOD ORDERABLES Final R esult Performing Organization Address [facility] de Phone Number [address] [address] * Sodium, random urine (04/21/2025 12:43 PM EDT) Only the most recent of2 resultswithin the time period is included. URINE SODIUM <20 mmol/L [facility] Urine (Urine) 04/21/2025 12: 43 PM EDT 04/21/2025 1:24 PM EDT Result Mo Barreto MD URINE ORDERABLES Final Resul t Performing Organization Address [facility] de Phone Number [address] [address] * Osmolality, Random Urine (04/21/2025 12:43 PM EDT) URINE OSMOLALITY 64 mOsm/kg water [facility] Urine (Urine) 04/21/2025 12: 43 PM EDT 04/21/2025 1:24 PM EDT Result Mo Barreto MD URINE ORDERABLES Final Resul t Performing Organization Address [facility] de Phone Number [address] [address] * (ABNORMAL) Lipid panel (04/12/2025 6:55 AM EDT) HDL 40 mg/dL [facility] Comment: Interpretation <40 mg/dL: Low HDL cholesterol (major risk factor for CHD) Greater than or equal to 60 mg/dL: High HDL cholesterol ( negative risk factor for CHD) HDL - cholesterol is affected by a number of factors, e.g. smoking, excerise, hormones, sex and age. CHOLESTEROL 131 0 - 240 mg/dL [facility] TRIGLYCERIDES 103 30 - 160 mg/dL [facility] LDL 70 50 - 129 mg/dL [facility] Comment: LDL levels in terms of risk for coronary heart disease: <100 mg/dL: Optimal 100-129 mg/dL: Near or above optimal 130-159 mg/dL: Borderline high 160-189 mg/dL: High >190 mg/dL: Very High CARDIAC RISK RATIO 3.3(L) 3.4 - 5.0 [facility] Blood 04/12/2025 6:55 AM EDT 04/12/2025 7:14 AM EDT us Nathaniel Leigh MD LAB BLOOD ORDERABLES Final Result Performing Organization Address City/State/[facility] Co de Phone Number [place] [phone] from Last 3 Months or Most Recently Relevant to Health Maintenance Insurance CARE MEDICARE REPLACEMENT JONE HERNANDEZ [id number] ONE CARE MEDICARE REPLACEMENT CARE MEDICARE REPLACEMENT CARE MEDICARE REPLACEMENT CARE MEDIC[place] [address] [place] [address] ONE CARE MEDICARE REPLACEMENT Advance Directives For more information, please contact: [phone] (9AM - 5PM [facility], Thursday-Thursday) * Full Code (Latest Code Status on File) Date Activated Date Inactivated Comments 10/25/2024 10:49 AM Question Answer Comments Code Status Confirmed With: Patient Care Teams Hydroelectric Powerplant Supervisor Relationship Specialty Start Date End Date Pcp, Unknown PCP - General 02/21/25 Additional Source Comments The information contained in this document represents components of the legal health record. It is not the complete legal health record.[facility]
[2025-07-18 13:57] LABS: Alanine Aminotransferase 31 U/L (0-40); Albumin Level 4.9 g/dL (3.5-5.0); Alkaline Phosphatase 61 U/L (39-117); Anion Gap 11 (12-20); Aspartate Amino Transferase 40 U/L (5-37); Blood Urea Nitrogen 7 mg/dL (9-16); Calcium 10.0 mg/dL (8.4-10.2); Carbon Dioxide 27 mmol/L (22-29); Chloride 101 mmol/L (96-108); Estimated Glomerular Filt Rate > 60; Potassium 4.3 mmol/L (3.3-5.1); Sodium 135 mmol/L (135-145); Total Protein 7.1 g/dL (6.5-8.0)
== END 2025-07-18 11:17 | disposition home or self-care (01) ==
LOC: HO.HHCL 11:16
PROVIDERS: PCP Nurse Practitioner Primary Care; Visit Provider Nurse Practitioner Primary Care
DX: E87.1 Hypo-osmolality and hyponatremia (principal); F20.0 Paranoid schizophrenia; F54 Psychological and behavioral factors associated with disorders or diseases classified elsewhere; R63.1 Polydipsia
CPT/HCPCS: 36415; 80053; 80164

== ENCOUNTER 2025-09-11 14:54 | Outpatient (REF) | payer OTHER, SELFPAY ==
--- OUTSIDE RECORDS SUMMARY | 2025-09-11 14:00 | XMS_ITS | Encounter Summary ---
Author Organization [employer] Address [address] [place] [address] 7 [place] [address] Care Team Providers Care Housing Counselor Name Role Phone Sylvia Ordaz MD Primary Care Provider [phone]- [phone] Reason for Visit * Reason Comments transfer Encounter Details Date Type Department Care Team ([facility] Contact Info) Description 09/11/2025 2:00 PM EST Office Visit [facility] [address] [place] [address] Sylvia Ordaz MD [address] [place] [address] Vitamin D deficiency (Primary Dx); Mild intermittent asthma without complication; Chronic hyponatremia; Dry skin; Encounter for immunization Social History Tobacco Use Types Packs/Day Years [...] Sign Reading Time Taken Comments Blood Pressure 134/86 09/11/2025 2:10 PM EST Pulse 71 09/11/2025 2:10 PM EST Temperature 36.8 C (98.2 F) 09/11/2025 2:10 PM EST Respiratory Rate 20 09/11/2025 2:10 PM EST Oxygen Saturation 98% 09/11/2025 2:10 PM EST Inhaled Oxygen Concentration - - Weight 112 kg (248 lb) 09/11/2025 2:10 PM EST Height 175.3 cm (5' 9 ) 09/11/2025 2:10 PM EST Body Mass Index 36.62 09/11/2025 2:10 PM EST documented in this encounter Progress Notes * Sylvia Ordaz MD - 09/11/2025 2:00 PM EST SUBJECTIVE Rocky Cummins is a 44 y.o. male who presents for transfer. HPI Rocky Placido, 44-year-old male - History of varicose veins of the lower extremities - History of vitamin D deficiency - History of psychogenic polydipsia - History of chronic hyponatremia - History of schizophrenia - History of asthma, currently well-controlled, denies breathing problems - Sodium level measured at 135 one month ago - Received flu shot on June 30, 2025 Problem List[1] Allergies[2] Medications Ordered Prior to Encounter[3] Review of Systems Constitutional: Negative for activity change, appetite change, chills and diaphoresis. HENT: Negative for dental problem, drooling and ear discharge. Eyes: Negative for pain and itching. Respiratory: Negative for cough, choking and chest tightness. Cardiovascular: Negative for palpitations and leg swelling. Gastrointestinal: Negative for abdominal pain, anal bleeding and blood in stool. Endocrine: Negative for cold intolerance and heat intolerance. Genitourinary: Negative for flank pain, frequency and genital sores. Musculoskeletal: Negative for back pain. Neurological: Negative for light-headedness, numbness and headaches. Psychiatric/Behavioral: Negative for agitation, confusion and decreased concentration. OBJECTIVE Vitals: 09/11/25 1410 BP: 134/86 BP Location: Left arm Patient Position: Sitting BP Cuff Size: Adult long Pulse: 71 Resp: 20 Temp: 98.2 ??F (36.8 ??C) TempSrc: Oral SpO2: 98% Weight: 248 lb (112 kg) Height: 5' 9 (1.753 m) Physical Exam Constitutional: General: He is not in acute distress. Appearance: Normal appearance. He is not ill-appearing, toxic-appearing or diaphoretic. Cardiovascular: Rate and Rhythm: Normal rate. Pulmonary: Effort: Pulmonary effort is normal. Abdominal: Palpations: Abdomen is soft. Skin: Comments: Varicose veins of lower limbs Dry skin. Neurological: Mental Status: He is alert. Assessment/Plan Assessment/Plan Diagnoses and all orders for this visit: Vitamin D deficiency Mild intermittent asthma without complication Chronic hyponatremia - Basic Metabolic Panel; Future - T-SPOT??.TB; Future Dry skin Mild intermittent asthma without complication: - Asthma is stable with no current symptoms. Chronic hyponatremia: - Chronic hyponatremia managed with sodium chloride supplementation. - Continue sodium chloride 3 times daily. Will recheck sodium levels in 3 months. Dry skin: - Dry skin likely due to lack of protective skin barrier. - Recommended CeraVe cream for use after shower to improve skin barrier. Varicose veins: - Recommended compression stockings if legs become heavy or varicose veins worsen. This note was drafted using Ambient (AI) technology. The patient/patient's guardian has been informed and has consented to the use of this technology: Yes [1] Patient Active Problem List Diagnosis Schizophrenia (HCC) Class 1 obesity Vitamin D deficiency Varicose veins of both lower extremities Mild intermittent asthma without complication Psychogenic polydipsia Chronic hyponatremia Schizophrenia, paranoid, chronic with acute exacerbation (CMS/HCC) ([facility]) [2] Allergies Allergen Reactions Aspirin Other reaction(s): Trouble Breathing [3] Current Outpatient Medications on File Prior to Visit Medication Sig Dispense Refill benztropine (Cogentin) 1 MG tablet Take 1 tablet by mouth 2 times daily. divalproex (Depakote) 250 MG EC tablet Take 1 tablet (250 mg total) by mouth 2 (two) times a day AND 3 tablets (750 mg total) nightly at bedtime EPINEPHrine (EpiPen 2-Carlos) 0.3 MG/0.3ML injection syringe Inject 0.3 mL into the shoulder, thigh, or buttocks. LORazepam (Ativan) 2 MG tablet Take 1 tablet by mouth at bedtime. risperiDONE microspheres (RisperDAL Consta) 50 MG injection Inject 50 mg into the muscle every 14 (fourteen) days. sodium chloride 1 g tablet Take 1 tablet by mouth 3 times daily. No current facility-administered medications on file prior to visit. documented in this encounter Miscellaneous Notes * Addendum Note - Enoc Carvajal MA - 09/11/2025 2:00 PM ESTAddended by: ENOC CARVAJAL on: 09/11/2025 02:41 PM Modules accepted: Orders documented in this encounter Plan of Treatment Upcoming Encounters Date Type Department Care Team (Late st Contact Info) Description 10/03/2025 9:30 AM EST Office Visit [facility] [address] [place] [address] Sylvia Ordaz MD [address] [place] [address] Scheduled Orders Name Type Priority Associated Diagnoses Orde r Schedule T-SPOT .TB Lab Routine Chronic hyponatremia Expected: 09/11/2025 (Approximate), Expires: 09/11/2026 documented as of this encounter Procedures Procedure Name Priority Date/Time Associated Diagnosis Comments VITAMIN D,25-OH,TOTAL,IA Routine 09/11/2025 2:55 PM EST Vitamin D deficiency BASIC METABOLIC PANEL Routine 09/11/2025 2:55 PM EST Chronic hyponatremia documented in this encounter Results * Vitamin D, 25-Hydroxy, Total, Immunoassay (09/11/2025 2:55 PM EST) Vitamin D 25-OH Total 35.3 >30 ng/mL [facility] Comment: Health Based Reference Values*< 20 ng/mL Kspxdoqeq53-13 ng/mL Insufficient> 30 ng/mL Sufficient*Sidney CHRISTOPHER. N Engl J Med. 2007;357:266-280There is no well-established upper level of normal vitamin Dlevels. Some laboratories use 50 ng/mL as an upper limit ofnormal. However, toxicity is patient-dependent and may occurat any level. Careful correlation with the patient'spresentation is necessary and, if there is concern forvitamin D toxicity, treatment should be consideredirrespective of the serum level.Care must be taken in interpreting Vitamin D results fromdifferent laboratories and methodologies. Published datademonstrated that results from patients undergoinghemodialysis may show a negative bias when tested withvarious automated 25-OH vitamin D assays when compared toLC-MS/MS.When testing samples from patients whose predominant form ofVitamin D is Vitamin D2, such as patients receiving VitaminD2 supplementation, results that are subtherapeutic shouldbe confirmed with another method such as LC-MS/MS. Blood Venous blood specimen / Unknown 09/11/2025 2:55 PM EST 09/11/2025 6:10 PM EST us Sylvia Ordaz MD LAB BLOOD ORDERABLES Final Result [facility] [address] [place] [phone] * (ABNORMAL) Basic Metabolic Panel (09/11/2025 2:55 PM EST) Sodium 133(L) 135 - 145 mmol/L [facility] Potassium 3.7 3.3 - 5.1 mmol/L [facility] Chloride 96 96 - 108 mmol/L [facility] Carbon Dioxide 31(H) 22 - 29 mmol/L [facility] Anion Gap 10(L) 12 - 20 [facility] Urea Nitrogen (BUN) 12 9 - 16 mg/dL [facility] Creatinine, Serum 0.90 0.5 - 1.4 mg/dL [facility] Estimated Glomerular Filt Rate >60 [facility] Comment:Chronic Kidney Disea se: Estimated GFR < 60 mL/min/1.50j7Ewippn Kidney Disease: Estimated GFR < 15 mL/min/1.73m2 Glucose 73 60 - 115 mg/dL [facility] Calcium 9.4 8.4 - 10.2 mg/dL [facility] Blood Venous blood specimen / Unknown 09/11/2025 2:55 PM EST 09/11/2025 6:10 PM EST Sylvia Ordaz MD LAB BLOOD ORDERABLES Final Result [facility] [address] [place] [phone] documented in this encounter Visit Diagnoses Diagnosis Vitamin D deficiency- Primary Mild intermittent asthma without complication Chronic hyponatremia Hyposmolality and/or hyponatremia Dry skin Other symptoms involving skin and integumentary tissues Encounter for immunization documented in this encounter Additional Health Concerns Assessment Noted Time PHQ-9 Depression Total Score: 4 07/18/20 25 10:44 AM EDT documented as of this encounter Care Teams Housing Counselor Relationship Specialty Start Date End Date Sylvia Ordaz MD [address] [place] [phone] PCP - General Internal Medicine 08/18/25 [facility] 11/17/24 documented as of this encounter
[2025-09-11 18:51] LABS: Anion Gap 10 (12-20); Blood Urea Nitrogen 12 mg/dL (9-16); Calcium 9.4 mg/dL (8.4-10.2); Carbon Dioxide 31 mmol/L (22-29); Chloride 96 mmol/L (96-108); Estimated Glomerular Filt Rate > 60; Potassium 3.7 mmol/L (3.3-5.1); Sodium 133 mmol/L (135-145)
--- OUTSIDE RECORDS SUMMARY | 2025-09-12 00:17 | XMS_ITS | Clinical Summary ---
Author Organization [employer] Address [address] [facility] [address]t [place] [address] Care Team Providers Care Communication Center Operator Name Role Phone Sylvia Ordaz MD Primary Care Provider [phone] Allergies Active Allergy Reactions Criticality Noted Date Comments Aspirin High 06/05/2020 Other reaction(s): Trouble Breathing Medications * This document contains information received from the source organization and may not represent a complete record from that organization. EPINEPHrine (EpiPen 2-Carlos) 0.3 MG/0.3ML injection syringe Inject 0.3 mL into the shoulder, thigh, or buttocks. 0 Active risperiDONE microspheres (RisperDAL Consta) 50 MG injection Inject 50 mg into the muscle every 14 (fourteen) days. 5 Active benztropine (Cogentin) 1 MG tablet Take 1 tablet by mouth 2 times daily. 5 Active divalproex (Depakote) 250 MG EC tablet Take 1 tablet (250 mg total) by mouth 2 (two) times a day AND 3 tablets (750 mg total) nightly at bedtime 5 Active LORazepam (Ativan) 2 MG tablet Take 1 tablet by mouth at bedtime. 5 Active sodium chloride 1 g tablet Take 1 tablet by mouth 3 times daily. 5 Active Active Problems Problem Noted Date Diagnosed Date Psychogenic polydipsia 06/29/2025 Chronic hyponatremia 06/29/2025 Schizophrenia, paranoid, chr onic with acute exacerbation (CMS/HCC) 03/09/2025 Class 1 obesity 09/04/2022 Vitamin D [...] intervention , Patient to reach out to [facility] team as needed, Comply with medication , Patient to engage in OP therapy , and Patient to reach out to [facility] as needed Pt will reconnect with same therapist and will follow-up with clinician as needed. Encounters * This document contains information received from the source organization and may not represent a complete record from that organization. Date Type Department Care Team Description 09/11/2025 2:00 PM EST Office Visit [facility] [address] [place] [address] Sylvia Ordaz MD Vitamin D deficiency (Primary Dx); Mild intermittent asthma without complication; Chronic hyponatremia; Dry skin; Encounter for immunization 09/11/2025 Travel 09/04/2025 Patient Outreach [facility] [address] [place] [address] Sylvia Ordaz MD Pre-visit Planning (SDOH was already completed) 08/18/[address] [address] Sylvia Ordaz MD Telephone Call 07/18/2025 10:30 AM EDT Office Visit [address] [address] Ludivina Gonzalez ANP Hospital discharge follow-up (Primary Dx); Paranoid schizophrenia (CMS/HCC) (HCC); Psychogenic polydipsia; Chronic hyponatremia 07/18/2025 Results Follow-Up [address] [address] Ludivina Gonzalez ANP Comprehensive Metabolic Panel, Valproic Acid Total 07/18/2025 Travel 07/17/[address] [address] Ludivina Gonzalez ANP chart prep 06/30/2025 Patient Outreach [address] [address] Ludivina Gonzalez ANP Transition Of Care (Tcm) (HDF scheduled) from Last 3 Months Immunizations Immunization Administration Dates Next Due Influenza injectable quadriv alent preservative free 08/31/2023,07/29/2022,06/25/2021,2019 Influenza, seasonal, injecta ble, preservative free 06/30/2025,08/12/2024 Moderna Covid-19 Vaccine 12+ 09/23/2021 Pfizer Covid-19 Vaccine 12+ 09/11/2025,1 10/12/2023,08/31/2023,2020 Pfizer Covid-19 Vaccine 12+ Bivalent 07/29/2022 Tdap [...] Mass Index 36.62 09/11/2025 2:10 PM EST Plan of Treatment Upcoming Encounters Date Type Department Care Team ([facility] st Contact Info) Description 10/03/2025 9:30 AM EST Office Visit [facility] & PEDS [address] [facility] [place] [address] Sylvia Ordaz MD [address] [place] [address] Health Maintenance Due Date Last Done Comments [...] 12/16/2025 12/16/2024 Depression Screening 07/18/2026 07/18/2025, 07/18/20 25 Disability Screening 07/18/2026 07/18/2025 Tobacco Screening 09/11/2026 09/11/2025 Lipid Panel 02/18/2028 02/17/2023, 06/22/2020 DTaP/Tdap/Td Vaccines (2 - Td or Tdap) 06/22/2030 06/22/2020 Zoster Vaccines (1 of 2) 12/10/2031 RSV Patients and Patients Aged 60 years or older (1 - 1-dose 75+ series) 2056 HIV Screening Completed 06/22/2020 Hepatitis C Screening Completed 06/22/2020 Influenza Vaccine Completed 06/30/2025, , 08/31/2023, Additional history exists COVID-19 Vaccine Completed 09/11/2025, 05/2024, 08/31/2023, Additional history exists HIB Vaccines Aged [...] Routine 09/11/2025 2:55 PM EST Chronic hyponatremia VALPROIC ACID Routine 07/18/2025 11:30 AM EDT Paranoid schizophrenia (CMS/HCC) (HCC) COMPREHENSIVE METABOLIC PANEL Routine 07/18/2025 11:30 AM EDT Psychogenic polydipsia Chronic hyponatremia LIPID PANEL, STANDARD Routine 02/17/2023 1:01 PM EDT Undifferentiated schizophrenia (CMS/HCC) Healthcare maintenance Lipid screening ZZZ HISTORICAL HEPATITIS C AB W/REFL TO HCV RNA, QN, PCR Routine 06/22/2020 2:28 PM EDT HIV 1/2 ANTIGEN/ANTIBODY, FOURTH GENERATION W/RFL Routine 06/22/2020 2:28 PM EDT from Last 3 Months or Most Recently Relevant to Health Maintenance Results * Vitamin D, 25-Hydroxy, Total, Immunoassay (09/11/2025 2:55 PM EST) Vitamin D 25-OH Total 35.3 >30 ng/mL [facility] Comment: Health Based Reference Values*< 20 ng/mL Kngntaois37-54 ng/mL Insufficient> 30 ng/mL Sufficient*Sidney CHRISTOPHER. N [...] Ordaz MD LAB BLOOD ORDERABLES Final Result [facility] [address] [place] [phone] * (ABNORMAL) Basic Metabolic Panel (09/11/2025 2:55 PM EST) Sodium 133(L) 135 - 145 mmol/L [facility] Potassium 3.7 3.3 - 5.1 mmol/L [facility] Chloride 96 96 - 108 mmol/L [facility] Carbon Dioxide 31(H) 22 - 29 mmol/L [facility] Anion Gap 10(L) 12 - 20 [facility] Urea Nitrogen (BUN) 12 9 - 16 mg/dL [facility] Creatinine, Serum 0.90 0.5 - 1.4 mg/dL [facility] Estimated Glomerular Filt Rate >60 [facility] Comment:Chronic Kidney Disea se: Estimated GFR < 60 mL/min/1.66z6Bpjoyg Kidney Disease: Estimated GFR < 15 mL/min/1.73m2 Glucose 73 60 - 115 mg/dL [facility] Calcium 9.4 8.4 - 10.2 mg/dL [facility] Blood Venous blood specimen / Unknown 09/11/2025 2:55 PM EST 09/11/2025 6:10 PM EST Sylvia Ordaz MD LAB BLOOD ORDERABLES Final Result Performing Organization Address City/[facility]/ZIP Co de Phone Number [facility] [address] [place] [phone] * Valproic Acid Total (07/18/2025 11:30 AM EDT) Valproate 69.0 50.0 - 100.0 mcg/mL [facility] Blood Venous blood specimen / Unknown 07/18/2025 11:30 AM EDT 07/18/2025 1:14 PM EDT Ludivina LIPSCOMB LAB BLOOD ORDERABLES Final Resul t Performing Organization Address [facility] Co de Phone Number [facility] [address] [place] [phone] * (ABNORMAL) Comprehensive Metabolic Panel (07/18/2025 11:30 AM EDT) Pathologist [facility] Sodium 135 135 - 145 mmol/L [facility] Potassium 4.3 3.3 - 5.1 mmol/L [facility] Chloride 101 96 - 108 mmol/L [facility] Carbon Dioxide 27 22 - 29 mmol/L [facility] Anion Gap 11(L) 12 - 20 [facility] Urea Nitrogen (BUN) 7(L) 9 - 16 mg/dL [facility] Creatinine, Serum 0.96 0.5 - 1.4 mg/dL [facility] Estimated Glomerular Filt Rate >60 [facility] Comment:Chronic Kidney Disea se: Estimated GFR < 60 mL/min/1.62i8Gwuurx Kidney Disease: Estimated GFR < 15 mL/min/1.73m2 Glucose 92 60 - 115 mg/dL [facility] Calcium 10.0 8.4 - 10.2 mg/dL [facility] Bilirubin, Total 1.1(H) 0.0 - 1.0 mg/dL [facility] Aspartate Amino Transferase 40(H) 5 - 37 U/L [facility] Alanine Aminotransferase 31 0 - 40 U/L [facility] Total Protein 7.1 6.5 - 8.0 g/dL [facility] Albumin Level 4.9 3.5 - 5.0 g/dL [facility] Alkaline Phosphatase 61 39 - 117 U/L [facility] Blood Venous blood specimen / Unknown 07/18/2025 11:30 AM EDT 07/18/2025 1:14 PM EDT us [facility] LAB BLOOD ORDERABLES Final Resul t [facility] [address] [place] [phone] * Lipid Panel, Standard (02/17/2023 1:01 PM EDT) Cholesterol, Total 150 <200 mg/dL [facility] HDL Cholesterol 61 > OR = 40 mg/dL [facility] Triglycerides 67 <150 mg/dL [facility] LDL Cholesterol 75 mg/dL (calc) [facility] Comment: Reference range: <100 Desirable range <100 mg/dL for primary prevention; <70 mg/dL for patients with CHD or diabetic patients with > or = 2 CHD risk factors. LDL-C is now calculated using the Edwardo-Jose calculation, which is a validated novel method providing better accuracy than the Friedewald equation in the estimation of LDL-C. Edwardo CASTRO et al. RENE. 2013;310(19): 2412-6969 (http://education.Veduca.Genbook/faq/HXO345) Chol/HDLC Ratio 2.5 <5.0 (calc) [facility] Non-HDL Cholesterol 89 <130 mg/dL (calc) [facility] Comment: For patients with diabetes plus 1 major ASCVD risk factor, treating to a non-HDL-C goal of <100 mg/dL (LDL-C of <70 mg/dL) is considered a therapeutic option. Blood Venous blood specimen / Unknown 02/17/2023 1:01 PM EDT 02/17/2023 1:01 PM EDT us Ludivina Gonzalez ANP LAB BLOOD ORDERABLES Final Resul t [facility] [address], [place] [phone] [facility] [address] [place] [phone] * HEPATITIS C AB W/REFL TO HCV RNA, QN, PCR (06/22/2020 2:28 PM EDT) HEPATITIS C ANTIBODY NON-REACT WAYNE NON-REACT WAY[facility] INDEX 0.04 <1.00 [facility] Comment: HCV antibody was non-reactive. There is no laboratory evidence of HCV infection. In most cases, no further action is required. However, if recent HCV exposure is suspected, a test for HCV RNA (test code 07996) is suggested. For additional information please refer to http://Busap/faq/CZC71z8 (This link is being provided for informational/ educational purposes only.) HEPATITIS C ANTIBODY NON-REACT WAYNE NON-REACT WAYNE [facility] INDEX 0.04 <1.00 [facility] Comment: HCV antibody was non-reactive. There is no laboratory evidence of HCV infection. In most cases, no further action is required. However, if recent HCV exposure is suspected, a test for HCV RNA (test code 86515) is suggested. For additional information please refer to http://Bridgevine.Clean Mobile/faq/MFM98r4 (This link is being provided for informational/ educational purposes only.) 06/22/2020 2:28 PM EDT us Ludivina Gonzalez ANP HISTORICAL/NON ORDERABLE LABS Fi nal Result [facility] [address] [place] [address], * HIV 1/2 ANTIGEN/ANTIBODY,FOURTH GENERATION W/RFL (06/22/2020 2:28 PM EDT) HIV-1/2 ANTIGEN AND ANTIBODIES, 4TH GENERATION W/ REFLEX NON-REACT [facility] NON-REACT [facility] Comment: HIV-1 antigen and HIV-1/HIV-2 [...] purpose. For additional information please refer to http://Bridgevine.Clean Mobile/faq/GDT920 (This link is being provided for informational/ educational purposes only.) The performance of this assay has not been clinically validated in patients less than 2 years old. HIV-1/2 ANTIGEN AND ANTIBODIES, 4TH GENERATION W/ REFLEX NON-REACT WAYNE NON-REACT WAYNE [facility] Comment: HIV-1 antigen and HIV-1/HIV-2 [...] purpose. For additional information please refer to http://education.Clean Mobile/faq/FOR196 (This link is being provided for informational/ educational purposes only.) The performance of this assay has not been clinically validated in patients less than 2 years old. HIV-1/2 ANTIGEN AND ANTIBODIES, 4TH GENERATION W/ REFLEX NON-REACT WAYNE NON-[facility]ACT [facility] Comment: HIV-1 antigen and HIV-1/HIV-2 [...] purpose. For additional information please refer to http://Bridgevine.Clean Mobile/faq/NJT304 (This link is being provided for informational/ educational purposes only.) The performance of this assay has not been clinically validated in patients less than 2 years old. HIV-1/2 ANTIGEN AND ANTIBODIES, 4TH GENERATION W/ REFLEX NON-REACT WAYNE NON-REACT WAYNE [facility] Comment: HIV-1 antigen and HIV-1/HIV-2 [...] purpose. For additional information please refer to http://Bridgevine.Clean Mobile/faq/MJT519 (This link is being provided for informational/ educational purposes only.) The performance of this assay has not been clinically validated in patients less than 2 years old. 06/22/2020 2:28 PM EDT [facility] LAB BLOOD ORDERABLES Final Resul t Performing Organization Address City/State/[facility] Co de Phone Number [facility] [address] from Last 3 Months or Most Recently Relevant to Health Maintenance Insurance [facility] CARE < 65 JONE HERNANDEZ [id number] Care Teams Communication Center Operator Relationship Specialty Start Date End Date Sylvia Ordaz MD [address] [place] [address] PCP - General Internal Medicine 08/18/25 [facility] 11/17/24
--- OUTSIDE RECORDS SUMMARY | 2025-09-12 00:17 | XMS_ITS | Encounter Summary ---
Author Organization [employer] Address [address] [facility] [address] [place] [address] Care Team Providers Care Fiction Writer Name Role Phone Ludivina Gonzalez Primary Care Provider [phone] Sylvia Ordaz MD Primary Care Provider [phone] Reason for Visit * Reason Onset Date Comments Call Back Request 10/12/2023 Encounter Details Date Type Department Care Team ([facility] st Contact Info) Description 10/12/2023 Telephone [facility] MEDICINE [address] [place], [place] [phone] Ludivina Gonzalez ANP [address] [place], [place] [phone] Call Back Request Social History Tobacco Use [...] and is concerned. Please contact pt at [phone] documented in this encounter Plan of Treatment Upcoming Encounters Date Type Department Care Team ([facility] Contact Info) Description 10/03/2025 9:30 AM EST Office Visit [facility]EDS [address] [place] [address] Sylvia Ordaz MD 505 [place] [address] documented as of this encounter Visit Diagnoses Not on filedocumented in this encounter Care Teams Fiction Writer Relationship Specialty Start Date End Date Ludivina Gonzalez ANP [address] [place] [address] PCP - General Family Medicine 06/05/20 08/17/25 Sylvia Ordaz MD 505 [place] [address] PCP - General Internal Medicine 08/18/25 [facility] 11/17/24 documented as of this encounter
--- OUTSIDE RECORDS SUMMARY | 2025-09-12 00:17 | XMS_ITS | Encounter Summary ---
Author Organization [employer] Address [address] [place] [address] [place] [address] Care Team Providers Care Manager Case Name Role Phone Ludivina Gonzalez Primary Care Provider [phone] Sylvia Ordaz MD Primary Care Provider [phone] Reason for Visit * Reason Comments Med Refill Encounter Details Date Type Department Care Team (Late Contact Info) Description 12/19/2022 Refill [facility] MEDICINE [address] [place] [address] Ludivina Gonzalez ANP [address] [place] [address] Vitamin D deficiency Social History Tobacco Use [...] Encounters Date Type Department Care Team (Late Contact Info) Description 10/03/2025 9:30 AM EST Office Visit [facility] MED & PEDS [address] [place], [place] [phone] Sylvia Ordaz MD [address] [place], [place] [phone] documented as of this encounter Visit Diagnoses Diagnosis Vitamin D deficiency documented in this encounter Care Teams Manager Case Relationship Specialty Start Date End Date Ludivina Gonzalez ANP [address] [place] [address] PCP - General Family Medicine 06/05/20 08/17/25 Sylvia Ordaz MD [address] [place] [address] PCP - General Internal Medicine 08/18/25 [facility] 11/17/24 documented as of this encounter
--- OUTSIDE RECORDS SUMMARY | 2025-09-12 00:18 | XMS_ITS | Clinical Summary ---
Author Organization [facility] Address [address] [place] [phone] Phone Care Team Providers Care Air Conditioning Installer Supervisor Name Role Phone Pcp, Unknown Primary [...] total) nightly at bedtime. 150 tablet 5 Active benztropine (COGENTIN) 1 MG tablet Take [...] times a day. 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 Date Type Department Care Team Description 07/19/2025 Refill [facility] Pediatric Neurology [address] [facility], 6th Floor, [address] [place] [address] Nathaniel Leigh MD Medication Refill from Last 3 Months Immunizations Immunization Administration Dates Next Due INFLUENZA, [...] SCREENING (18-6 5 YEARS) 12/10/1999 COVID-19 VACCINE (2 2024-2 6 season) 2025 01/30/2021 SCREENING FOR DIABETES 06/30/2028 , 04/12/2025 LIPID [...] 06/30/2025 7:00 AM EDT BASIC METABOLIC PANEL (BMP) Routine 06/30/2025 7:00 AM EDT COVID PANDEMIC RESPIRATORY VIRAL ORDER (PRO) Routine 06/29/2025 3:05 PM EDT VALPROIC ACID Timed 06/29/2025 9:01 AM EDT BASIC METABOLIC PANEL (BMP) Routine 06/28/2025 8:41 AM EDT BASIC METABOLIC PANEL (BMP) Routine 06/26/2025 7:28 AM EDT BASIC METABOLIC PANEL (BMP) Routine 06/23/2025 7:15 AM EDT BASIC METABOLIC PANEL (BMP) Routine 06/21/2025 7:53 AM EDT BASIC METABOLIC PANEL (BMP) Routine 06/19/2025 7:21 AM EDT BASIC METABOLIC PANEL (BMP) Routine 06/16/2025 6:00 AM EDT BASIC METABOLIC PANEL (BMP) Routine 06/14/2025 7:40 AM EDT LIPID PANEL Routine 04/12/2025 6:55 AM EDT from Last 3 Months or Most Recently Relevant to Health Maintenance Results * CBC and differential (06/30/2025 7:00 AM EDT) WBC 6.31 4.00 - 11.00 K/uL [facility] [...] AM EDT Nathaniel Leigh MD LAB BLOOD BKR ORDERABLES F inal Result Performing Organization Address City/[facility]/ZIP Co de Phone Number [address] [address] * Valproic acid (06/30/2025 7:00 AM EDT) Only the most recent of2 resultswithin the time period is included. VALPROIC ACID 85.5 50.0 - 100.0 ug/mL [facility] Blood 06/30/2025 7:00 AM EDT 06/30/2025 7:14 AM EDT Nathaniel Leigh MD LAB BLOOD BKR ORDERABLES F inal Result Performing Organization Address [facility] Co de Phone Number [address] [address] * (ABNORMAL) Basic metabolic panel (06/30/2025 7:00 AM EDT) Only the most recent of8 resultswithin the time period is included. SODIUM [...] AM EDT Nathaniel Leigh MD LAB BLOOD BKR ORDERABLES F inal Result Performing Organization Address [facility] de Phone Number [address] [address] * COVID Pandemic Respiratory Viral Order (PRO) [...] 3:05 PM EDT 06/29/2025 3:38 PM EDT Nathaniel Leigh MD LAB GENERAL ORDERABLES Fin al Result Performing Organization Address [facility] de Phone Number [address] [address] * (ABNORMAL) Lipid panel (04/12/2025 6:55 AM [...] RISK RATIO 3.3(L) 3.4 - 5.0 [facility] Blood 04/12/2025 6:55 AM EDT 04/12/2025 7:14 AM EDT us Nathaniel Leigh MD LAB BLOOD BKR [place] [address] from Last 3 Months or Most Recently Relevant to Health Maintenance Insurance CARE MEDICARE REPLACEMENT CARE MEDICARE REPLACEMENT CARE MEDICARE REPLACEMENT CARE MEDICARE REPLACEMENT CARE MEDIC[place] [address] [place] [address] ONE [employer] MEDICARE REPLACEMENT Advance Directives For more information, please contact: [phone] (9AM - 5PM [facility], Thursday-Thursday) * Full Code (Latest Code Status on File) Date Activated Date Inactivated Comments 10/25/2024 10:49 AM Question Answer Comments Code Status Confirmed With: Patient Care Teams Air Conditioning Installer Supervisor Relationship Specialty Start Date End Date Pcp, Unknown PCP - General 02/21/25 Additional Source Comments The information contained in this document represents components of the legal health record. It is not the complete legal health record.[facility]
--- OUTSIDE RECORDS SUMMARY | 2025-09-12 00:18 | XMS_ITS | Encounter Summary ---
Author Organization [employer] Address [address] [facility] 7t [place] [address] Care Team Providers Care Curriculum Manager Name Role Phone Ludivina Gonzalez Primary Care Provider [phone] Sylvia Ordaz MD Primary Care Provider [phone] Reason for Visit * Reason Onset Date Comments FYI 02/24/2025 Encounter Details Date Type Department Care Team ([facility] st Contact Info) Description 02/24/2025 Telephone [facility] MEDICINE [address] [place], [place] [phone] Ludivina Gonzalez ANP [address] [place] [address] FYI Social History Tobacco Use Types Packs/Day [...] - 02/24/2025 12:19 PM EDT Tc from [facility] with [facility] calling to inform provider pt was transferred to Emergency. Name of hospital and reason not provided. Nursing services will be paused until further notice. If any questions contact Hiral at [phone] documented in this encounter Plan of Treatment Upcoming Encounters Date Type Department Care Team (Late st Contact Info) Description 10/03/2025 9:30 AM EST Office Visit [facility] MED & PEDS [address] [place] [address] Sylvia Ordaz MD [address] [place] [address] documented as of this encounter Visit Diagnoses Not on filedocumented in this encounter Additional Health Concerns Assessment Noted Time PHQ-9 Depression Total Score: 7 10/20/19 25 2:22 PM EST documented as of this encounter Care Teams Curriculum Manager Relationship Specialty Start Date End Date Ludivina Gonzalez ANP [address] [place] [address] PCP - General Family Medicine 06/05/20 08/17/25 Sylvia Ordaz MD [address] [place] [address] PCP - General Internal Medicine 08/18/25 [facility] 11/17/24 documented as of this encounter
--- OUTSIDE RECORDS SUMMARY | 2025-09-12 00:18 | XMS_ITS | Encounter Summary ---
Author Organization [employer] Address [address] [facility] [address] [place] [address] Care Team Providers Care Ride Attendant Name Role Phone Ludivina Gonzalez Primary Care Provider [phone] Sylvia Ordaz MD Primary Care Provider [phone] Encounter Details Date Type Department Care Team (Latest Contact Info) Description 07/18/2025 Results Follow-Up [facility] MEDICINE 230 [place], [place] [phone] Ludivina Gonzalez ANP [address] [place] [address] Comprehensive Metabolic Panel, Valproic Acid Total Social History Tobacco Use Types Packs/Day Years [...] co ntrol worrying 1 07/18/2025 10:44 AM Kiley Roman [place] Worrying too much about diff erent things 1 07/18/2025 10:44 AM Kiley Roman [place] Trouble relaxing 1 07/18/2025 10:44 AM Kiley Roman [place] Being so restless that it is hard to sit still 0 07/18/2025 10:44 AM Kiley Roman [place] Becoming easily annoyed or irritable 1 07/18/2025 10:44 AM Kiley Roman [place] Feeling afraid as if somethi ng awful might happen 2 07/18/2025 10:44 AM Kiley Roman MA CATARINA-7 Total Score 7 07/18/2025 10:44 AM Kiley Roman [place] documented as of this encounter Miscellaneous Notes * Result Encounter Note - DEISI Monatño - 07/18/2025 5:02 PM EDT Dear Rocky Cummins, Your lab results are normal. Please call our office if you have any questions. Los resultados de laboratorio son normales. Por favor llame a la oficina si tiene preguntas. Take care, Cu??Ludivina carrasco [employer] documented in this encounter Plan of Treatment Upcoming Encounters Date Type Department Care Team (Late st Contact Info) Description 10/03/2025 9:30 AM EST Office Visit [facility] MED & PEDS 505 [place] [address] Sylvia Ordaz MD [address] [place] [address] documented as of this encounter Visit Diagnoses Not on filedocumented in this encounter Additional Health Concerns Assessment Noted Time PHQ-9 Depression Total Score: 4 07/18/20 10:44 AM EDT documented as of this encounter Care Teams Ride Attendant Relationship Specialty Start Date End Date Ludivina Gonzalez ANP [address] [place] [address] PCP - General Family Medicine 06/05/20 08/17/25 Sylvia Ordaz MD [address] [place] [address] PCP - General Internal Medicine 08/18/25 [facility] 11/17/24 documented as of this encounter
--- OUTSIDE RECORDS SUMMARY | 2025-09-12 00:19 | XMS_ITS | Encounter Summary ---
Author Organization [employer] Address [address] [facility] 7t [place] [address] Care Team Providers Care Legislative Analyst Name Role Phone Sylvia Ordaz MD Primary Care Provider [phone] Encounter Details Date Type Department Care Team (Latest Contact Info) Description 09/11/2025 Travel Social History Tobacco Use Types Packs/Day [...] Description 10/03/2025 9:30 AM EST Office Visit [facility] MED & PEDS 505 [place] [address] Sylvia Ordaz MD 505 [place] [address] documented as of this encounter Visit Diagnoses Not on filedocumented in this encounter Additional Health Concerns Assessment Noted Time PHQ-9 Depression Total Score: 4 07/18/20 25 10:44 AM EDT documented as of this encounter Care Teams Legislative Analyst Relationship Specialty Start Date End Date Sylvia Ordaz MD [address] [place] [address] PCP - General Internal Medicine 08/18/25 [facility] 11/17/24 documented as of this encounter
[2025-09-14 03:48] LABS: TS Negative Control Passed; TS Panel A 1; TS Panel B 2; TS Positive Control Passed; TSpotTB Negative (Negative)
== END 2025-09-11 14:55 | disposition home or self-care (01) ==
LOC: HO.CHCLDS 14:54
PROVIDERS: Visit Provider Internal Medicine
DX: Z11.1 Encounter for screening for respiratory tuberculosis (principal); E87.1 Hypo-osmolality and hyponatremia; E55.9 Vitamin D deficiency, unspecified
CPT/HCPCS: 36415; 80048; 82306; 86481